=== PATIENT | female | born 1975 | race Caucasian/White ===

== ENCOUNTER 2019-10-19 12:41 | Day surgery (SDC) | payer OTHER ==
[~2019-10-19 12:41] MED LIST: MULTIVITAMINS1 EAC7; PRENA1 PLUS CO1 EACH PO
[2019-10-19] MEDS ORDERED: PROBIOTIC1 EAC1 PO (13:02)
--- NOTE | 2019-10-19 13:44 | NUR ---
DISCHARGE INSTRUCTIONS GIVEN AND PATIENT AND HER SPOUSE VERBALIZE UNDERSTANDING. PATIENT IS DISCHARGED HOME AMBULATORY ACCOMPANIED BY HER SPOUSE.
--- NOTE | 2019-10-21 08:21 | OR ---
[facility] [address], [place] [address] Signed DATE OF OPERATION: 10/19/2019 SURGEON: Carolyn Ford MD PREOPERATIVE DIAGNOSES: 1. Right inflammatory breast cancer. 2. Enlarged right axillary lymph node. POSTOPERATIVE DIAGNOSES: 1. Right inflammatory breast cancer. 2. Enlarged right axillary lymph node. PROCEDURE: Ultrasound-guided right axillary lymph node biopsy (core biopsy, Biopty gun device). ANESTHESIA: A 1% lidocaine. INDICATION: A 44-year-old white woman, has a right-sided inflammatory breast cancer with an ulcerated lesion inferiorly at the mammary crease and peau d'orange changes with a dense mass approximately 10 cm in size. Additionally, she has a palpable right axillary lymph node. Core biopsy performed by me on Friday (today is Friday), confirmed infiltrating ductal breast carcinoma and clinical findings consistent with inflammatory breast cancer. She is here to undergo core biopsy of the axillary lymph node anticipating a standard inflammatory breast cancer treatment protocol to include chemotherapy and ultimately mastectomy. The lymph node is clinically suspicious and a biopsy anticipating her therapy has been recommended by me. She is due to see Dr. Zavaleta on Friday (tomorrow) and a Port-A-Cath is planned for Friday. She has no primary care provider. She understands the risks of core biopsy of the right axillary lymph node and wished to proceed. FINDINGS: The lymph node was well visualized on ultrasound and palpable within the axillary tissue. Two good core biopsies were obtained of the lesion under direct visualization. There was no complication. DESCRIPTION OF PROCEDURE: The patient was placed in the semi-recumbent position in the Day Surgery stretcher area and the right axilla interrogated with a SonLyticste ultrasound probe device. It was Electronically Signed By: CAROLYN FORD MD 10/21/19 0821 PATIENT NAME: BLAKE RHOADES OPERATIVE REPORT DATE OF : 79 REPORT #: [id number] PHYSICIAN: CAROLYN FORD MD PCP: NO PRIMARY CARE PHYSICIAN REPORT IS CONFIDENTIAL AND NOT TO BE RELEASED WITHOUT AUTHORIZATION [facility] [address], [place] [address] Signed easily visualized and corresponding to the palpable abnormality consistent with lymph node. Axilla was prepared with a chlorhexidine solution with her arm elevated somewhat and draped sterilely. A 1% lidocaine was injected in the margin of the pectoralis muscle and the ultrasound probe placed in the sterile sleeve in the usual way. A small incision was made with an #11 blade to allow for accommodation of a 14-gauge Biopty gun needle device. This was directed into view with the ultrasound probe guidance and aligned with the lymph node. Core biopsy was obtained without problem. There was no untoward bleeding. Pressure was applied to the site by the autopsy assistant and the specimen offloaded. With the same technique, another core biopsy was obtained and photographs taken of the needle directly passing through the lymph node in question. Again, there was no sign of bleeding and interrogation of the remaining axilla showed no sign of complication including bleeding. A Band-Aid was applied. She tolerated procedure well. MD SABRINA Butler/KARIN /[id number] cc: Mike Zavaleta MD Copies: MIKE ZAVALETA MD ~ Electronically Signed By: CAROLYN FORD MD 10/21/19 0821 PATIENT NAME: BLAKE RHOADES OPERATIVE REPORT DATE OF : 79 REPORT #: [id number] PHYSICIAN: CAROLYN FORD MD PCP: NO PRIMARY CARE PHYSICIAN REPORT IS CONFIDENTIAL AND NOT TO BE RELEASED WITHOUT AUTHORIZATION
--- NOTE | 2019-10-21 17:40 | PATH ---
[facility] [address], [place] [address] Signed SPECIMEN(S): A RIGHT AXILLARY LYMPH NODE SPECIMEN SOURCE: A. RIGHT AXILLARY LYMPH NODE CLINICAL HISTORY: Inflammatory breast ca right side. Right axillary lymph node biopsy. FINAL PATHOLOGIC DIAGNOSIS: Lymph node, right axilla, needle core biopsy: - Metastatic ductal carcinoma. - See comment. COMMENT: The metastatic carcinoma is present within dense fibrous connective tissue; no definitive lymph node tissue is identified. Immunohistochemical stains (with appropriately staining controls) were performed. The tumor cells are positive for ER and mammaglobin, supporting breast origin. The carcinoma is morphologically similar to the previously biopsied right breast carcinoma ([id number], 10/15/2019). As part of [facility]' Quality Improvement Program, this case was reviewed by another member of our pathology staff. The results were spoken to Dr. Quezada's office on 10/20/2019. NAL:NRT:cml:C1NR MICROSCOPIC EXAMINATION: Histologic sections of all submitted blocks are examined by light microscopy. These findings, together with the gross examination, support the pathologic diagnosis. GROSS DESCRIPTION: The specimen, labeled "HK," and designated on the requisition "right axillary lymph node, breast cancer right side," is received in formalin and consists of two fatty fibrous tissue cores and fragments measuring up to 0.1 cm in diameter and ranging 1.3-1.5 cm in length. The cores and fragments are inked with eosin and entirely submitted in cassette (A1). Cold ischemic time: Cannot be determined because of lack of information Approximate time in formalin: Cannot be determined, no collection time is provided PATIENT NAME: BLAKE RHOADES PATHOLOGY DATE OF : 79 REPORT #: [id number] PHYSICIAN: JAGRUTI PATHOLOGY PCP: NO PRIMARY CARE PHYSICIAN REPORT IS CONFIDENTIAL AND NOT TO BE RELEASED WITHOUT AUTHORIZATION [facility] [address], [place] [address] Signed AT (under the direct supervision of a pathologist) The Gross Description was prepared using a voice recognition system. The report was reviewed for accuracy; however, sound-alike word errors, addition and/or deletions may occur. If there is any question about this report, please contact Client Services. ADDITIONAL NOTES: Immunohistochemical and/or in situ hybridization studies were performed on this case with the appropriate positive controls that react as expected. This test was developed and its performance characteristics determined by [facility]. It has not been cleared or approved by the U.S. Food and Drug Administration. The FDA has determined that such clearance or approval is not necessary. This test is used for clinical purposes. It should not be regarded as investigational or for research. [facility] is certified under the Clinical Laboratory Improvement Amendments of 1988 (CLIA) as qualified to perform high complexity clinical laboratory testing. PERFORMING LABORATORY: The technical component was performed by [facility], [address] [place] [address] (Legal Transcriptionist: Flora Prieto MD; CLIA# [id number]). [facility], [address] [address] (CLIA# [id number]). Diagnostician: Autumn Peacock MD Pathologist Electronically Signed 10/21/2019 Copies: ~ PATIENT NAME: BLAKE RHOADES PATHOLOGY DATE OF : 79 REPORT #: [id number] PHYSICIAN: JAGRUTI PATHOLOGY PCP: NO PRIMARY CARE PHYSICIAN REPORT IS CONFIDENTIAL AND NOT TO BE RELEASED WITHOUT AUTHORIZATION
[2019-10-26] MEDS ORDERED: IBUPROFEN600 MG PO (11:39)
[2019-10-26] MEDS ORDERED: OXYCODON-ACETA1 EAC2 PO (11:39)
[2019-10-26] MEDS ORDERED: TYLENOL EXTRA500 MG PO (11:39)
== END 2019-10-19 18:00 | disposition home or self-care (01) ==
LOC: OPS 12:41 → DS 12:44 → OPS 18:00
PROC: 07B50ZX Excision of Right Axillary Lymphatic, Open Approach, Diagnostic (ICD-10-PCS; principal; 2019-10-19)
DX: C77.3 Secondary and unspecified malignant neoplasm of axilla and upper limb lymph nodes (principal); C50.911 Malignant neoplasm of unspecified site of right female breast; I10 Essential (primary) hypertension
CPT/HCPCS: 19100

== ENCOUNTER 2019-11-10 17:56 | Inpatient (IN) | payer OTHER ==
[~2019-11-10] VITALS: Ht 152.4 cm; Wt 65.2 kg
--- OUTSIDE RECORDS SUMMARY | ~2019-11-10 | XMS | Encounter Summary ---
Demographics + + + | Address | [address] | | | [place] [address] | + + + | Home Phone | | + + + | Preferred Language | Unknown | + + + | Marital Status | | + + + | Buddhism Affiliation | Unknown | + + + | Race | Unknown | + + + | Ethnic Group | Unknown | + + + Author + + + | Author | [facility] | | | and [facility] | + + + | Organization | [facility] | | | and [facility] | + + + | Address | Unknown | + + + | Phone | Unavailable | + + + Support + + + + + | Name | Relationship | Address | Phone | + + + + + | Franklin Yusuf | ECON | [address] | | | | | [place], [place] | | | | | [address] | | + + + + + Care Team Providers + +------+ + | Care Phlebotomist Supervisor/Instructor Name | Role | Phone | + +------+ + | No, Unknownpcp | PCP | | + +------+ + Reason for Visit + + + | Reason | Comments | + + + | Follow-up | | + + + Evaluate & Treat (Routine) + +--------+ + + + + | Status | Reason | Specialty | Diagnoses / | Referred By | Referred To | | | | | Procedures | Contact | Contact | + +--------+ + + + + | Authorized | | Oncology | Diagnoses | | [facility] | | | | | Malignant | Gely, | Oncology | | | | | neoplasm of | Ron Karen, | Clinic [address] | | | | | unspecified | [address] | [place] | | | | | site of | KAREN [place]ANDON, | [place], | | | | | right female | [address] | [place] [address] | | | | | breast | [place], | Phone: | | | | | (HCC) | [place] [address] | [phone] | | | | | Breast | | Fax: | | | | | Cancer | | [phone] | | | | | Procedures | | | | | | | [facility] | | | | | | | FOLLOW UP | | | + +--------+ + + + + Encounter Details +--------+ + + + + | Date | Type | Department | Care Team | Description | +--------+ + + + + | 10/27/ | Hospital | [facility] | Zachary Santos | Malignant neoplasm | | 2020 | Encounter | [facility] | MD Dano [address] | of breast in female, | | | | ONCOLOGY CL[facility] [address] [place], [place] | estrogen receptor | | | | [address] [place] | [address] | positive, | | | | [place] [address] | | unspecified | | | | [phone] | | laterality, | | | | | | unspecified site of | | | | | | breast (HCC) | | | | | | (Primary Dx) | +--------+ + + + + Social History + +-------+ +--------+------+ | Tobacco Use | Types | Packs/Day | Years | Date | | | | | Used | | + +-------+ +--------+------+ | Never Assessed | | | | | + +-------+ +--------+------+ + + +---------+ + | Alcohol Use | Drinks/Week | oz/Week | Comments | + + +---------+ + | Yes | | | occasionally | + + +---------+ + + + + | Sex Assigned at | Date Recorded | | | | + + + | Not on file | | + + + documented as of this encounter Last Filed Vital Signs + + + + + | Vital Sign | Reading | Time Taken | Comments | + + + + + | Blood Pressure | 164/102 | 10/28/2019 10:26 AM | | | | | PDT | | + + + + + | Pulse | 78 | 10/28/2019 10:26 AM | | | | | PDT | | + + + + + | Temperature | 37.3 C (99.1 F) | 10/28/2019 10:26 AM | | | | | PDT | | + + + + + | Respiratory Rate | 16 | 10/28/2019 10:26 AM | | | | | PDT | | + + + + + | Oxygen Saturation | 97% | 10/28/2019 10:26 AM | | | | | PDT | | + + + + + | Inhaled Oxygen | - | - | | | Concentration | | | | + + + + + | Weight | 64.5 kg (142 lb 3.2 | 10/28/2019 10:26 AM | | | | oz) | PDT | | + + + + + | Height | - | - | | + + + + + | Body Mass Index | - | - | | + + + + + documented in this encounter Medications at Time of Discharge + + + +---------+ + + | Medication | Sig | Dispensed | Refills | Start | End Date | | | | | | Date | | + + + +---------+ + + | dexamethasone | | | 0 | 10/20/19 | | | (DECADRON) 4 mg | | | | 20 | | | tablet | | | | | | + + + +---------+ + + | ibuprofen | TAKE 1 TABLET BY | | 0 | 10/26/19 | | | (ADVIL,MOTRIN) 600 | MOUTH EVERY 6 HOURS | | | 20 | | | MG tablet | NEEDED FOR | | | | | | | MODERATE PAIN | | | | | + + + +---------+ + + | LORazepam (ATIVAN) | | | 0 | 10/20/19 | | | 1 mg tablet | | | | 20 | | + + + +---------+ + + | Multiple Vitamin | Take by mouth. | | 0 | | | | (MULTIVITAMIN PO) | | | | | | + + + +---------+ + + | ondansetron | TAKE 1 TABLET BY | | 0 | 10/21/19 | | | (ZOFRAN) 8 MG tablet | MOUTH TWICE DAILY | | | 20 | | | | FOR 2 DAYS AFTER | | | | | | | CHEMOTHERAPY | | | | | + + + +---------+ + + | | TAKE 1 TO 2 TABLETS | | 0 | 20 | | | oxyCODONE-acetaminop | BY MOUTH EVERY 6 | | | 20 | | | hen (PERCOCET) | HOURS NEEDED | | | | | | 7.5-325 mg per | | | | | | | tablet | | | | | | + + + +---------+ + + | Probiotic Product | Take by mouth. | | 0 | | | | (PROBIOTIC PO) | | | | | | + + + +---------+ + + documented as of this encounter Progress Notes Zachary Santos MD - 10/28/2019 10:40 AM PDTMedical Oncology Follow-Up Note REASON FOR VISIT Current Diagnosis and Disease State: Inflammatory breast cancer, newly diagnosed. Current Therapy: To start dose-dense AC Specific reason for appointment: C1, D1 being given in [place] secondary to baird proble ms in [place]. Systematic Review of Systems Constitutional: Denies fatigue. Denies high fevers, shaking chills, anorexia, nausea, vomit ing, weight loss, or night sweats. Appetite without changes. Ear, Nose, Mouth, Throat: Denies odynophagia, dysphagia, or tinnitus. Cardiovascular: Denies shortness of breath, dyspnea on exertion, chest pain, palpitations o r orthopnea. Respiratory: Denies cough, hemoptysis, or sputum production. Gastrointestinal: Denies abdominal pain, constipation, diarrhea, melena, or bright red bloo d per rectum. Genitourinary: Denies hematuria or dysuria. Musculoskeletal: Denies joint pain or tenderness. Neurologic: Denies headache, visual changes, or numbness/tingling of the extremities. Endocrine: Denies peripheral edema or heat/cold intolerance. Hematologic: Denies spontaneous bruising or bleeding. Integumentary: Denies rash, wounds or other skin concerns. Pain: Denies pain. CANCER HISTORY A 2 month history of Right breast pain led to medical attention and finding of inflammatory breast cancer. Biopsy showed G2 IDC with ER strong, IA 5% and Her2 positive. Ki-67 was 22% (thus, a Her2 positive luminal breast cancer). A program of AC, followed by Taxol with dual mAbs, followed by surgery has been outlined by Dr. Hong. IMPORTANT CO-MORBIDITY None NOTABLE CURRENT LAB AND IMAGING RESULTS Unremarkable IMPRESSION 1. Triple-positive breast cancer with low Ki-67, presenting with inflammatory phenotype 2. Minimal co-morbidity PLAN 1. C1, D1 AC as previously ordered. Will lengthen Christiano infusion a bit as this is known to reduce potential for cardiac toxicity. Measures to preserve cardiac function are needed sinc e she will be getting long-term anti-Her2 therapy and almost certainly chest wall radiation in the course of her treatment. 2. Denis count in 10 days, and presumably Dr. Q to decide on retreatment interval. Shruthi Lopez CMA - 10/28/2019 10:40 AM PDTREVIEW OF SYSTEMS Constitutional: Denies fatigue. Denies high fevers, shaking chills, anorexia, nausea, vomit ing, weight loss, or night sweats. Appetite without changes. Ear, Nose, Mouth, Throat: Denies odynophagia, dysphagia, or tinnitus. Cardiovascular: Denies shortness of breath, dyspnea on exertion, chest pain, palpitations o r orthopnea. Respiratory: Denies cough, hemoptysis, or sputum production. Gastrointestinal: Denies abdominal pain, constipation, diarrhea, melena, or bright red bloo d per rectum. Genitourinary: Denies hematuria or dysuria. Musculoskeletal: Denies joint pain or tenderness. Neurologic: Denies headache, visual changes, or numbness/tingling of the extremities. Endocrine: Denies peripheral edema or heat/cold intolerance. Hematologic: Denies spontaneous bruising or bleeding. Integumentary: Denies rash, wounds or other skin concerns. Pain: Denies pain. Note: Pt is here today for first and labs.Consent obtained to begin treatment. Pt is gladis gayle from Dr. Hong at [facility]. My chart: Declined documented in this encounter Plan of Treatment Not on filedocumented as of this encounter Procedures + +--------+ + + + | Procedure Name | Priori | Date/Time | Associated Diagnosis | Comments | | | ty | | | | + +--------+ + + + | PATHOLOGY - EXTERNAL | | 10/15/2019 | | Results for this | | SCAN | | 12:00 AM | | procedure are in the | | | | PDT | | results section. | + +--------+ + + + documented in this encounter Results PATHOLOGY - EXTERNAL SCAN (10/15/2019 12:00 AM PDT) + + + | Narrative | Performed At | + + + | Ordered by an | | | unspecified provider. | | + + + documented in this encounter Visit Diagnoses + + | Diagnosis | + + | Malignant neoplasm of breast in female, estrogen receptor positive, unspecified | | laterality, unspecified site of breast (HCC) - Primary | + + documented in this encounter"
--- OUTSIDE RECORDS SUMMARY | ~2019-11-10 | XMS | Encounter Summary ---
Demographics + + + | Address | [address] | | | [place] [address] | + + + | Home Phone | | + + + | Preferred Language | Unknown | + + + | Marital Status | | + + + | Uatsdin Affiliation | Unknown | + + + | Race | Unknown | + + + | Ethnic Group | Unknown | + + + Author + + + | Author | [facility] | | | and [facility] | + + + | Organization | [facility] | | | and [facility] | + + + | Address | Unknown | + + + | Phone | Unavailable | + + + Support + + + + + | Name | Relationship | Address | Phone | + + + + + | Franklin Yusuf | ECON | [address] | | | | | [place], [place] | | | | | [address] | | + + + + + Care Team Providers + +------+ + | Care Piano Instructor Name | Role | Phone | + +------+ + | No, Unknownpcp | PCP | | + +------+ + Reason for Visit Service/Procedure (Routine) + +--------+ + + + + | Status | Reason | Specialty | Diagnoses / | Referred By | Referred To | | | | | Procedures | Contact | Contact | + +--------+ + + + + | Authorized | | Infusion | Diagnoses | Danielle | [facility] | | | | Therapy | Malignant | Zachary E, | Infusion [address] | | | | | neoplasm of | MD [address] | | | | | unspecified | [address] | [place], | | | | | site of | [place], | [place] [address] | | | | | unspecified | [place] [address] | Phone: | | | | | female | Phone: | [phone] | | | | | breast (HCC) | [phone] | Fax: | | | | | Procedures | Fax: | [phone] | | | | | CT NORMAL | [phone] | | | | | | SALINE | | | | | | | SOLUTION | | | | | | | INFUS, 500 | | | | | | | ML CT | | | | | | | NORMAL | | | | | | | SALINE | | | | | | | SOLUTION | | | | | | | INFUS, 250 | | | | | | | ML CT | | | | | | | STERILE | | | | | | | WATER/SALINE | | | | | | | , [address] | | | | | | | CHEMOTHER, | | | | | | | IV PUSH,EA | | | | | | | ADD DRUG CT | | | | | | | CHEMOTHER, | | | | | | | IV INFUSION, | | | | | | | [address] | | | | | | | CHEMOTHER, | | | | | | | IV INFUSION, | | | | | | | EA HR CT | | | | | | | CHEMOTHER,NO | | | | | | | N-HORMONE | | | | | | | ANTI-NEOPL, | | | | | | | SUB-Q/IM CT | | | | | | | CHEMOTHER | | | | | | | HORMON | | | | | | | ANTINEOPL | | | | | | | SUB-Q/IM CT | | | | | | | | | | | | | | PALONOSETRON | | | | | | | HCL, 25 MCG | | | | | | | CT ORAL | | | | | | | DEXAMETHASON | | | | | | | E, .25 MG | | | | | | | CT INJ., | | | | | | | APREPITANT, | | | | | | | [address] | | | | | | | LORAZEPAM | | | | | | | INJECTION, 2 | | | | | | | MG CT | | | | | | | DOXORUBICIN | | | | | | | HCL | | | | | | | INJECTION, | | | | | | | [address] | | | | | | | CYCLOPHOSPHA | | | | | | | MIDE 100 MG | | | | | | | INJ | | | + +--------+ + + + + Encounter Details +--------+ + + + + | Date | Type | Department | Care Team | Description | +--------+ + + + + | 10/27/ | Hospital | [facility] | Zachary Santos | Malignant neoplasm | | 2019 | Encounter | MED [facility] | MD Dano [address] | of breast in female, | | | | INFUSION [address] [place] | estrogen receptor | | | | [place], | [address] | positive, | | | | [place] [address] | | unspecified | | | | [phone] | | laterality, | | | | [...] + + + | Blood Pressure | - | - | | + + + + + | Pulse | - | - | | + + + + + | Temperature | - | - | | + + + + + | Respiratory Rate | - | - | | + + + + + | Oxygen Saturation | - | - | | + + + + + | Inhaled Oxygen | - | - | | | Concentration | | | | + + + + + | Weight | - | - | | + + + + + | Height | 156.2 cm (5' 1.5") | 10/28/2019 11:00 AM | | | | | PDT [...] | dexamethasone | | | 0 | / | | | (DECADRON) 4 mg | [...] TO 2 TABLETS | | 0 | 10/17/ | | | oxyCODONE-acetaminop | BY MOUTH [...] documented as of this encounter Progress Notes Priscilla Ferris RN - 10/28/2019 2:51 PM PDTTreatment complete. Discharged to home in s atisfactory condition with family. Future appointments provided. documented in this encounter Miscellaneous Notes Treatment Plan - Magdalena Swanson RN - 10/28/2019 11:07 AM PDTViewed chart for weight, vital signs and lab results. Also viewed chart for completion of medication and allergy rev iew prior to treatment. Magdalena Swanson RNDATE/TIME: 10/28/2019 11:07 AM PDT documented in thi s encounter Plan of Treatment Not on filedocumented as of this encounter Procedures + +--------+ + + + | Procedure Name | Priori | Date/Time | Associated Diagnosis | Comments | | | ty | | | | + +--------+ + + + | CBC WITH | STAT | 10/28/2019 | Malignant neoplasm | Results for this | | DIFFERENTIAL | | 10:08 AM | of breast in | procedure are in the | | | | PDT | female, estrogen | results section. | | | | | receptor positive, | | | | | | unspecified | | | | | | laterality, | | | | | | unspecified site of | | | | | | breast (HCC) | | + +--------+ + + + | COMPREHENSIVE | STAT | 10/28/2019 | Malignant neoplasm | Results for this | | METABOLIC PANEL | | 10:08 AM | of breast in | procedure are in the | | | | PDT | female, estrogen | results section. | | | | | receptor positive, | | | | | | unspecified | | | | | | laterality, | | | | | | unspecified site of | | | | | | breast (HCC) | | + +--------+ + + + documented in this encounter Results CBC with Differential (10/28/2019 10:08 AM PDT) + + + + + + | Component | Value | Ref Range | Performed | Pathologist | | | | | At | Signature | + + + + + + | White Blood | 5.7 | 4.0 - 11.0 K/uL | [facility] | | | Cells | | | [facility] | | | | | | [facility] | | | | | | C[facility] - | | | | | | LABORATORY | | + + + + + + | Red Blood | 4.54 | 3.70 - 5.20 | [facility] | | | Cells | | M/uL | [facility] | | | | | | [facility] | | | | | | CENTER - | | | | | | LABORATORY | | + + + + + + | Hemoglobin | 13.5 | 11.5 - 16.0 | [facility] | | | | | g/dL | [facility] | | | | | | [facility] | | | | | | CENTER - | | | | | | LABORATORY | | + + + + + + | Hematocrit | 38.9 | 34.0 - 47.0 % | [facility] | | | | | | [facility] | | | | | [facility] | | | | | | [facility] - | | | | | | LABORATORY | | + + + + + + | MCV | 85.7 | 83.0 - 101.0 fL | [facility] | | | | | | [facility] | | | | | | [facility] | | | | | | [facility] - | | | | | | LABORATORY | | + + + + + + | MCH | 29.7 | 28.0 - 35.0 pg | [facility] | | | | | | [facility] | | | | | | [facility]ICAL | | | | | | CENTER - | | | | | | LABORATORY | | + + + + + + | MCHC | 34.7 | 32.0 - 36.0 | [facility] | | | | | g/dL | [facility] | | | | | | MEDICAL | | | | | | CENTER - | | | | | | LABORATORY | | + + + + + + | RDW-CV | 12.7 | <15.0 % | [facility] | | | | | | [facility] | | | | | | [facility] | | | | | | C[facility] - | | | | | | LABORATORY | | + + + + + + | RDW-SD | 39.7 | 35.1 - 46.3 fL | [facility] | | | | | | [facility] | | | | | | [facility] | | | | | | C[facility] - | | | | | | LABORATORY | | + + + + + + | Platelet | 223 | 140 - 440 K/uL | [facility] | | | Count | | | [facility] | | | | | | MEDICAL | | | | | | CENTER - | | | | | | LABORATORY | | + + + + + + | MPV | 9.2 | 6.5 - 12.4 fL | [facility] | | | | | | [facility] | | | | | | [facility]ICAL | | | | | | CENTER - | | | | | | LABORATORY | | + + + + + + | % | 69.9 | 45.0 - 82.0 % | [facility] | | | Neutrophils | | | [facility] | | | | | | MEDICAL | | | | | | CENTER - | | | | | | LABORATORY | | + + + + + + | % | 19.5 (L) | 20.0 - 45.0 % | [facility] | | | Lymphocytes | | | [facility] | | | | | | MEDICAL | | | | | | CENTER - | | | | | | LABORATORY | | + + + + + + | % Monocytes | 8.9 | 4.0 - 12.0 % | [facility] | | | | | | [facility] | | | | | | [facility]ICAL | | | | | | CENTER - | | | | | | LABORATORY | | + + + + + + | % | 1.1 | 0.0 - 5.0 % | [facility] | | | Eosinophils | | | [facility] | | | | | | MEDICAL | | | | | | CENTER - | | | | | | LABORATORY | | + + + + + + | % Basophils | 0.4 | 0.0 - 1.0 % | [facility] | | | | | | [facility] | | | | | | [facility]ICAL | | | | | | CENTER - | | | | | | LABORATORY | | + + + + + + | % Immature | 0.2Comment: For | 0.0 - 0.4 % | [facility] | | | Granulocyte | patients, use the | | [facility] | | | s | special reference ranges | | MEDICAL | | | | listed below. | | CENTER - | | | | | | LABORATORY | | + + + + + + | Absolute | 3.99 | 1.80 - 8.50 | [facility] | | | Neutrophils | | K/uL | [facility] | | | | | | MEDICAL | | | | | | CENTER - | | | | | | LABORATORY | | + + + + + + | Absolute | 1.11 | 0.60 - 3.20 | [facility] | | | Lymphocytes | | K/uL | [facility] | | | | | | MEDICAL | | | | | | CENTER - | | | | | | LABORATORY | | + + + + + + | Absolute | 0.51 | 0.00 - 1.00 | [facility] | | | Monocytes | | K/uL | [facility] | | | | | | MEDICAL | | | | | | CENTER - | | | | | | LABORATORY | | + + + + + + | Absolute | 0.06 | 0.00 - 0.40 | [facility] | | | Eosinophils | | K/uL | [facility] | | | | | | MEDICAL | | | | | | CENTER - | | | | | | LABORATORY | | + + + + + + | Absolute | 0.02 | 0.00 - 0.10 | [facility] | | | Basophils | | K/uL | [facility] | | | | | | MEDICAL | | | | | | CENTER - | | | | | | LABORATORY | | + + + + + + | Absolute | 0.01Comment: For | 0.00 - 0.03 | [facility] | | | Immature | patients, use | K/uL | [facility] | | | Granulocyte | the special reference | | MEDICAL | | | s | ranges listed below. | | CENTER - | | | | | | LABORATORY | | + + + + + + | % nRBC | 0 | 0 - 2 per 100 | [facility] | | | | | WBCs | [facility] | | | | | | MEDICAL | | | | | | CENTER - | | | | | | LABORATORY | | + + + + + + | Absolute | 0.00 | 0.00 - 0.01 | [facility] | | | nRBC | | K/uL | [facility] | | | | | | MEDICAL | | | | | | CENTER - | | | | | | LABORATORY | | + + + + + + + + | Specimen | + + | Blood | + + + + + | Narrative | Performed At | + + + | IMMATURE GRANULOCYTES - For patients, use the following | [facility] | | reference ranges: Trim. Absolute (K/uL) Percentage (%) | [facility] | | 1st 0.003-0.091 K/uL 0.0-0.9% 2nd 0.007-0.247 K/uL | [facility] | | 0.1-2.0% 3rd 0.018-0.456 K/uL 0.1-2.0% | - LABORATORY | + + + + + + + + | Performing | Address | City/State/Zipcode | Phone Number | | Organization | | | | + + + + + | [facility] | [address] | [place], [place] | [phone] | | [facility] | | [address] | | | - LABORATORY | | | | + + + + + Comprehensive Metabolic Panel (10/28/2019 10:08 AM PDT) + + + + + + | Component | Value | Ref Range | Performed | Pathologist | | | | | At | Signature | + + + + + + | Na | 143 | 136 - 145 | [facility] | | | | | mmol/L | [facility] | | | | | | MEDICAL | | | | | | CENTER - | | | | | | LABORATORY | | + + + + + + | K | 3.7 | 3.4 - 5.1 | [facility] | | | | | mmol/L | [facility] | | | | | | MEDICAL | | | | | | CENTER - | | | | | | LABORATORY | | + + + + + + | Cl | 109 (H) | 98 - 107 mmol/L | [facility] | | | | | | [facility] | | | | | | [facility] | | | | | | C[facility] - | | | | | | LABORATORY | | + + + + + + | CO2 | 25 | 20 - 31 mmol/L | [facility] | | | | | | [facility] | | | | | | [facility] | | | | | | CENTER - | | | | | | LABORATORY | | + + + + + + | Anion Gap | 9 | 3 - 16 mmol/L | [facility] | | | | | | [facility] | | | | | | [facility] | | | | | | CENTER - | | | | | | LABORATORY | | + + + + + + | Glucose | 86 | 60 - 106 mg/dL | [facility] | | | | | | [facility] | | | | | | MEDICAL | | | | | | CENTER - | | | | | | LABORATORY | | + + + + + + | BUN | 11 | 9 - 23 mg/dL | [facility] | | | | | | [facility] | | | | | | MEDICAL | | | | | | CENTER - | | | | | | LABORATORY | | + + + + + + | Creatinine | 0.54 (L) | 0.55 - 1.02 | [facility] | | | | | mg/dL | [facility] | | | | | | MEDICAL | | | | | | CENTER - | | | | | | LABORATORY | | + + + + + + | eGFR if not | >60Comment: GLOMERULAR | >=60 | [facility] | | | | FILTRATION | mL/min/1.73m2 | [facility] | | | PANAMANIAN | RATE,ESTIMATED | | MEDICAL | | | | mL/min/1.70p1Ftak than | | CENTER - | | | | 60 Chronic kidney | | LABORATORY | | | | disease,if found over a | | | | | | 3-month period.Less than | | | | | | 15 Kidney failureFor | | | | | | | | | | | | Americans,multiply the | | | | | | calculated GFR by 1.21. | | | | | | | | | | + + + + + + | Calcium | 8.5 (L) | 8.7 - 10.4 | [facility] | | | | | mg/dL | [facility] | | | | | | MEDICAL | | | | | | CENTER - | | | | | | LABORATORY | | + + + + + + | Albumin | 4.1 | 3.2 - 4.8 g/dL | [facility] | | | | | | [facility] | | | | | | MEDICAL | | | | | | CENTER - | | | | | | LABORATORY | | + + + + + + | Bilirubin | 0.3 | 0.3 - 1.2 mg/dL | [facility] | | | Total | | | [facility] | | | | | | MEDICAL | | | | | | CENTER - | | | | | | LABORATORY | | + + + + + + | Total | 6.4 | 5.7 - 8.2 g/dL | [facility] | | | Protein | | | [facility] | | | | | | MEDICAL | | | | | | CENTER - | | | | | | LABORATORY | | + + + + + + | AST | 28 | 0 - 34 U/L | [facility] | | | | | | [facility] | | | | | | MEDICAL | | | | | | CENTER - | | | | | | LABORATORY | | + + + + + + | ALT | 21 | 10 - 49 U/L | [facility] | | | | | | [facility] | | | | | | MEDICAL | | | | | | CENTER - | | | | | | LABORATORY | | + + + + + + | Alkaline | 80 | 46 - 116 U/L | [facility] | | | Phosphatase | | | [facility] | | | | | | MEDICAL | | | | | | CENTER - | | | | | | LABORATORY | | + + + + + + | Globulin | 2.3 | 2.1 - 3.8 g/dL | [facility] | | | | | | [facility] | | | | | | MEDICAL | | | | | | CENTER - | | | | | | LABORATORY | | + + + + + + | Albumin/Cecilia | 1.8 | 0.8 - 1.9 | [facility] | | | bulin Ratio | | | [facility] | | | | | | MEDICAL | | | | | | CENTER - | | | | | | LABORATORY | | + + + + + + | BUN/Creatin | 20.4 | | [facility] | | | ine Ratio | | | [facility] | | | | | | MEDICAL | | | | | | CENTER - | | | | | | LABORATORY | | + + + + + + + + | Specimen | + + | Blood | + + + + + + + | Performing | Address | City/State/Zipcode | Phone Number | | Organization | | | | + + + + + | [facility] | [address] | [place] | [phone] | | [facility] | | [address] | | | - LABORATORY | | | | + + + + + documented in this encounter Visit Diagnoses + + | Diagnosis | + + | Malignant neoplasm of breast in female, estrogen receptor positive, unspecified | | laterality, unspecified site of breast (HCC) - Primary | + + documented in this encounter Administered Medications + +--------+ +--------+------+------+ | Medication Order | MAR | Action | Dose | Rate | Site | | | Action | Date | | | | + +--------+ +--------+------+------+ | aprepitant (CINVANTI) injection | Given | 10/28/19 | 130 mg | | | | 130 mg 130 mg, IV Push, ONCE, | | 20 11:16 | | | | | Toña 10/28/19 at 1115, For 1 dose, | | AM PDT | | | | | Administer 30 minutes prior to | | | | | | | chemotherapy. Administer slowly | | | | | | | over 2 minutes, | | | | | | + +--------+ +--------+------+------+ +---+---+ | | | +---+---+ + +---------+ + +-------+---+ | cyclophosphamide (CYTOXAN) | New Bag | 10/28/19 | 1,000 mg | 500 | | | 1,000 mg in sodium chloride 0.9% | | 20 2:09 | | mL/hr | | | 200 mL infusion 1,000 mg | | PM PDT | | | | | (rounded from 1,002 mg = 600 | | | | | | | mg/m2 | | | | | | | 1.67 m2 Order-specific BSA), | | | | | | | Intravenous, Administer over 30 | | | | | | | Minutes, ONCE, [facility] 10/28/19 at | | | | | | | 1409, For 1 dose, Chemotherapy: | | | | | | | Use appropriate handling | | | | | | | precautions. If patient | | | | | | | experiences facial discomfort, | | | | | | | stop infusion and wait until | | | | | | | symptoms subside. Extend infusion | | | | | | | time(s) to greater than or equal | | | | | | | to 1 hour., | | | | | | + +---------+ + +-------+---+ +---+---+ | | | +---+---+ + +-------+ +-------+---+---+ | dexamethasone (DECADRON) tablet | Given | 10/28/19 | 12 mg | | | | 12 mg 12 mg, Oral, ONCE, Toña | | 20 11:13 | | | | | 10/28/19 at 1115, For 1 dose, | | AM PDT | | | | | Administer 30 minutes prior to | | | | | | | chemotherapy., | | | | | | + +-------+ +-------+---+---+ +---+---+ | | | +---+---+ + +---------+ +--------+-------+---+ | DOXOrubicin (ADRIAMYCIN) 100 mg | New Bag | 10/28/19 | 100 mg | 125 | | | in sodium chloride 0.9% 200 mL | | 20 11:56 | | mL/hr | | | infusion 100 mg (rounded from | | AM PDT | | | | | 100.2 mg = 60 mg/m2 | | | | | | | 1.67 m2 Order-specific BSA), | | | | | | | Intravenous, Administer over 120 | | | | | | | Minutes, ONCE, Toña 10/28/19 at | | | | | | | 1130, For 1 dose, Chemotherapy: | | | | | | | Use appropriate handling | | | | | | | precautions. Vesicant. Protect | | | | | | | from light., | | | | | | + +---------+ +--------+-------+---+ +---+---+ | | | +---+---+ + +-------+ +-------+---+---+ | heparin 100 units/mL flush | Given | 10/28/19 | 500 | | | | injection 500 Units 500 Units (5 | | 20 2:50 | Units | | | | mL), Intracatheter, PRN, Line | | PM PDT | | | | | Care, Starting Toña 10/28/19 at | | | | | | | 1106 | | | | | | + +-------+ +-------+---+---+ +---+---+ | | | +---+---+ + +-------+ +---------+---+---+ | palonosetron (ALOXI) injection | Given | 10/28/19 | 0.25 mg | | | | 0.25 mg 0.25 mg, Intravenous, | | 20 11:15 | | | | | ONCE, [facility] 10/28/19 at 1115, For 1 | | AM PDT | | | | | dose, Give IV push over 30 | | | | | | | seconds. Flush with saline before | | | | | | | and after giving. Administer 30 | | | | | | | minutes prior to chemotherapy., | | | | | | + +-------+ +---------+---+---+ +---+---+ | | | +---+---+ documented in this encounter
--- OUTSIDE RECORDS SUMMARY | ~2019-11-10 | XMS | Encounter Summary ---
Demographics + + + | Address | [address] | | | [place] [address] | + + + | Home Phone | | + + + | Preferred Language | Unknown | + + + | Marital Status | | + + + | Yarsanism Affiliation | Unknown | + + + | Race | Unknown | + + + | Ethnic Group | Unknown | + + + Author + + + | Author | [facility] | | | and [facility] | + + + | Organization | [facility] | | | and [facility] [...] [place], [place] | | | | | [address] | | + + + + + Care Team Providers + +------+ + | Care Credit Analyst Name | Role | Phone | + [...] | unspecified | [address] | [place] | | | | | site of | [place], | [place], | | | | | right female | [address] | [place] [address] | | | | | breast | [place], | Phone: | | | | | (HCC) | [place] [address] | [phone] | | | | | Breast | | Fax: | | | | | Cancer | | [phone] | | | | | Procedures | | | | | | | [facility] | | | | | | | FOLLOW UP | | | + +--------+ + + + + Encounter Details +--------+ + + + + | Date | Type | Department | Care Team | Description | +--------+ + + + + | 10/27/ | Hospital | [facility] | Zachary Santos | Malignant neoplasm | | 2020 | Encounter | [facility] | MD Dano [address] | of breast in female, | | | | [facility] [address] [place], [place] | estrogen receptor | | | | [address] [place] [address] | [address] | positive, | | | | [place] [address] | | unspecified | | | | [phone] | | laterality, | | | | [...] for appointment: C1, D1 being given in [place] secondary to baird proble ms in [place]. Systematic Review of Systems Constitutional: Denies fatigue. 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 Ki-67 was 22% [...] is gladis gayle from Dr. Hong at [facility]. My chart: Declined documented in this [...]
--- OUTSIDE RECORDS SUMMARY | ~2019-11-10 | XMS | Clinical Summary ---
Demographics + + + | Address | [address] | | | [place] [address] | + + + | Home Phone | | + + + | Preferred Language | Unknown | + + + | Marital Status | | + + + | Roman Catholic Affiliation | Unknown | + + + | Race | Unknown | + + + | Ethnic Group | Unknown | + + + Author + + + | Author | [facility] | | | and [facility] | + + + | Organization | [facility] | | | and [facility] [...] [place], [place] | | | | | [address] | | + + + + + Care Team Providers + +------+ + | Care Hydrologist Name | Role | Phone | + +------+ + | No, Unknownpcp | PCP | | + +------+ + Allergies No Known Allergies Medications + + + +---------+------+------+-------+ | Medication | Sig | Dispensed | Refills | Star | End | Statu | | | | | | t | Date | s | | | | | | Date | | | + + + +---------+------+------+-------+ | | TAKE 1 TO 2 TABLETS | | 0 | 06/1 | | Activ | | oxyCODONE-acetaminop | BY MOUTH EVERY 6 | | | 5/20 | | e | | hen (PERCOCET) | HOURS NEEDED | | | 20 | | | | 7.5-325 mg per | | | | | | | | tablet | | | | | | | + + + +---------+------+------+-------+ | LORazepam (ATIVAN) | | | 0 | 06/1 | | Activ | | 1 mg tablet | | | | 7/20 | | e | | | | | | 20 | | | + + + +---------+------+------+-------+ | dexamethasone | | | 0 | 06/1 | | Activ | | (DECADRON) 4 mg | | | | 7/20 | | e | | tablet | | | | 20 | | | + + + +---------+------+------+-------+ | Multiple Vitamin | Take by mouth. | | 0 | | | Activ | | (MULTIVITAMIN PO) | | | | | | e | + + + +---------+------+------+-------+ | ibuprofen | TAKE 1 TABLET BY | | 0 | 06/2 | | Activ | | (ADVIL,MOTRIN) 600 | MOUTH EVERY 6 HOURS | | | 3/20 | | e | | MG tablet | NEEDED FOR | | | 20 | | | | | MODERATE PAIN | | | | | | + + + +---------+------+------+-------+ | ondansetron | TAKE 1 TABLET BY | | 0 | 06/1 | | Activ | | (ZOFRAN) 8 MG tablet | MOUTH TWICE DAILY | | | 8/20 | | e | | | FOR 2 DAYS AFTER | | | 20 | | | | | CHEMOTHERAPY | | | | | | + + + +---------+------+------+-------+ | Probiotic Product | Take by mouth. | | 0 | | | Activ | | (PROBIOTIC PO) | | | | | | e | + + + +---------+------+------+-------+ Active Problems + + + | Problem | Noted Date | + + + | Breast cancer | 10/21/2019 | + + + Encounters +--------+ + + + + | Date | Type | Specialty | Care Team | Description | +--------+ + + + + | 10/27/ | Hospital | Oncology | Zachary Santos | Malignant neoplasm | | 2019 | Encounter | | MD Tari Matson, | of breast in female, | | | | | Scott Kulkarni PharmD | estrogen receptor | | | | | | positive, | | | | | | unspecified | | | | | | laterality, | | | | | | unspecified site of | | | | | | breast (HCC) | | | | | | (Primary Dx) | +--------+ + + + + | 10/27/ | Hospital | Oncology | Zachary Santos | Malignant neoplasm | | 2020 | Encounter | | E, MD | of breast in female, | | | | | | estrogen receptor | | | | | | positive, | | | | | | unspecified | | | | | | laterality, | | | | | | unspecified site of | | | | | | breast (HCC) | | | | | | (Primary Dx) | +--------+ + + + + | 10/27/ | Hospital | Infusion Therapy | Zachary Santos | Malignant neoplasm | | 2019 | Encounter | | E, MD | of breast in female, | | | | | | estrogen receptor | | | | | | positive, | | | | | | unspecified | | | | | | laterality, | | | | | | unspecified site of | | | | | | breast (HCC) | | | | | | (Primary Dx) | +--------+ + + + + | 10/26/ | Abstract | Oncology | Shruthi Bro, | | | 2019 | | | INJECTION MOLDING MACHINE TENDER | | +--------+ + + + + | 10/20/ | Orders Only | Oncology | DukegoldieScott clayton | Malignant neoplasm | | 2020 | | | J, PharmD | of breast in female, | | | | | | estrogen receptor | | | | | | positive, | | | | | | unspecified | | | | | | laterality, | | | | | | unspecified site of | | | | | | breast (HCC) | +--------+ + + + + from Last 3 Months Social History + +-------+ +--------+------+ | Tobacco [...] on file | | + + + Last Filed Vital Signs + + + [...] | | + + + + + Plan of Treatment + + +-------+ + | Health Maintenance | Due Date | Last | Comments | | | | Done | | + + +-------+ + | Vaccine: | | | | | Pneumococcal 19-64 | 4 | | | | (1 of 3 - PCV13) | | | | + + +-------+ + | Vaccine: | | | | | Dtap/Tdap/Td (1 - | 7 | | | | Tdap) | | | | + + +-------+ + | Cervical Cancer | | | | | Screening (Pap) | 8 | | | + + +-------+ + | Vaccine: Influenza | | | | | (#1) | 0 | | | + + +-------+ + Procedures + +--------+ + + + | [...] section. | + +--------+ + + + from Last 3 Months Results CBC with Differential (10/28/2019 10:08 AM PDT) + + + + + + | Component | Value | Ref Range | Performed | Pathologist | | | | | At | Signature | + + + + + + | White Blood | 5.7 | 4.0 - 11.0 K/uL | [facility] | | | Cells | | | [facility] | | [...] | | | | | | [facility] | | | | | | MEDICAL [...] | Monocytes | | K/uL | [facility] | [...] | | Basophils | | K/uL | [facility] | | | | [...] | | | | | WBCs | [facility] | | | | | | MEDICAL | | | | | | CENTER - | | | | | | LABORATORY | | + + + + + + | Absolute | 0.00 | 0.00 - 0.01 | [facility] | | | nRBC | | K/uL | [facility] | [...] 0.003-0.091 K/uL 0.0-0.9% 2nd 0.007-0.247 K/uL | [facility] | | 0.1-2.0% 3rd 0.018-0.456 K/uL 0.1-2.0% | - LABORATORY | + + + + + + + + | Performing | Address | City/State/Zipcode | Phone Number | | Organization | | | | + + + + + | [facility] | [address] | [place] | [phone] | | [facility] | | [address] | | | - LABORATORY | | [...] | | | | | mmol/L | [facility] | | | | | | MEDICAL | | | | | | CENTER - | | | | | | LABORATORY | | + + + + + + | K | 3.7 | 3.4 - 5.1 | [facility] | | | | | mmol/L | [facility] | | | | [...] 11 | 9 - 23 mg/dL | [facility] | | | | | | [facility] | | | | | | MEDICAL | | | | | | CENTER - | | | | | | LABORATORY | | + + + + + + | Creatinine | 0.54 (L) | 0.55 - 1.02 | [facility] | | | | | mg/dL | [facility] | | | | | | MEDICAL | | | | | | CENTER - | | | | | | LABORATORY | | + + + + + + | eGFR if not | >60Comment: GLOMERULAR | >=60 | [facility] | | | | FILTRATION | mL/min/1.73m2 | [facility] | | | THAI | RATE,ESTIMATED | | MEDICAL | | | | mL/min/1.31x1Stsd than | | CENTER - | | [...] 8.5 (L) | 8.7 - 10.4 | [facility] | | | | | mg/dL | [facility] | | | | | | MEDICAL | | | | | | CENTER - | | | | | | LABORATORY | | + + + + + + | Albumin | 4.1 | 3.2 - 4.8 g/dL | [facility] | | | | | | [facility] | | | | | | MEDICAL | | | | | | CENTER - | | | | | | LABORATORY | | + + + + + + | Bilirubin | 0.3 | 0.3 - 1.2 mg/dL | [facility] | | | Total | | | [...] + + + + + | [facility] | [address] | [place], [place] | [phone] | | [facility] | | [address] | | | - LABORATORY | | | | + + + + + PATHOLOGY - EXTERNAL SCAN (10/15/2019 12:00 AM PDT) + + + | Narrative | Performed At | + + + | Ordered by an | | | unspecified provider. | | + + + from Last 3 Months Insurance + +--------+ +--------+ +---------+------+ | Payer | Benefi | Subscriber | Effect | Phone | Address | Type | | | t Plan | ID | jeanette | | | | | | / | | Dates | | | | | | Group | | | | | | + +--------+ +--------+ +---------+------+ | [facility] | PHP | [id number] | 05/05/19 | [phone] | | PPO | | PLAN | PEBB | | 18-Pre | 5 | | | | | STATEW | | sent | | | | | | GREG | | | | | | + +--------+ +--------+ +---------+------+ + +--------+ +--------+ + + | Guarantor Name | Accoun | Relation to | Date | Phone | Billing Address | | | t Type | Patient | of | | | | | | | | | | + +--------+ +--------+ + + | Alicia Yusuf | Person | Self [birth year] | [address] | | al/Fam | | 1976 | [phone] | [place] [address] | | | car | | | 0 (Home) | | + +--------+ +--------+ + + Advance Directives + + + + + | Type | Date Recorded | Patient | Explanation | | | | Gui Developer | | + + + + + | Power of | | | | | Firewall Administrator | | | | + + + + + | Advance | | | | | Directive | | | | + + + + +
--- OUTSIDE RECORDS SUMMARY | ~2019-11-10 | XMS | Encounter Summary ---
Demographics + + + | Address | [address] | | | [place] [address] | + + + | Home Phone | | + + + | Preferred Language | Unknown | + + + | Marital Status | | + + + | Lutheran Affiliation | Unknown | + + + | Race | Unknown | + + + | Ethnic Group | Unknown | + + + Author + + + | Author | [facility] | | | and [facility] | + + + | Organization | [facility] | | | and [facility] | + + + | Address | Unknown | + + + | Phone | Unavailable | + + + Support + + + + + | Name | Relationship | Address | Phone | + + + + + | Franklin Yusuf | ECON | [address] | | | | | [place], [place] | | | | | [address] | | + + + + + Care Team Providers + +------+ + | Care Welder Explosion Name | Role | Phone | + +------+ + | No, Unknownpcp | PCP | | + +------+ + Encounter Details +--------+ + + + + | Date | Type | Department | Care Team | Description | +--------+ + + + + | 10/26/ | Abstract | [facility] | Shruthi Bro, | | | 2019 | | MED CTR MEDICAL | REGISTERED NURSES | | | | | [facility]Y CLINIC [address] | | | | | | [address] | | | | | | [place] [address] | | | | | | [phone] | | | +--------+ + + + + Social [...] + + documented as of this encounter Plan of Treatment Not on filedocumented as of this encounter Visit Diagnoses Not on filedocumented in this encounter"
--- OUTSIDE RECORDS SUMMARY | ~2019-11-10 | XMS | Encounter Summary ---
Demographics + + + | Address | [address] | | | [place] [address] | + + + | Home Phone | | + + + | Preferred Language | Unknown | + + + | Marital Status | | + + + | Presybeterian Affiliation | Unknown | + + + | Race | Unknown | + + + | Ethnic Group | Unknown | + + + Author + + + | Author | [facility] | | | and [facility] | + + + | Organization | [facility] | | | and [facility] | [...] [place], [place] | | | | | [address] | | + + + + + Care Team Providers + +------+ + | Care Shop Estimator Name | Role | Phone | + [...] of | MD [address] | | | | | unspecified | [address] | [place], | | | | | site of | [place], | [place] [address] | | | | | unspecified | [place] [address] | Phone: | | | | | female | Phone: | [phone] | | | | | breast (HCC) | [phone] | Fax: | | | | | Procedures | Fax: | [phone] | | | | | FL NORMAL | [phone] | | | | | | SALINE | | | | | | | SOLUTION | | | | | | | INFUS, 500 | | | | | | | ML FL | | | | | | | NORMAL | | | | | | | SALINE | | | | | | | SOLUTION | | | | | | | INFUS, 250 | | | | | | | ML FL | | | | | | | STERILE | | | | | | | WATER/SALINE | | | | | | | , 10 ML FL | | | | | | | CHEMOTHER, | | | | | | | IV PUSH,EA | | | | | | | ADD DRUG FL | | | | | | | CHEMOTHER, | | | | | | | IV INFUSION, | | | | | | | 1 HR FL | | | | | | | CHEMOTHER, | | | | | | | IV INFUSION, | | | | | | | EA HR FL | | | | | | | CHEMOTHER,NO | | | | | | | N-HORMONE | | | | | | | ANTI-NEOPL, | | | | | | | SUB-Q/IM FL | | | | | | | CHEMOTHER | | | | | | | HORMON | | | | | | | ANTINEOPL | | | | | | | SUB-Q/IM FL | | | | | | | | | | | | | | PALONOSETRON | | | | | | | HCL, 25 MCG | | | | | | | FL ORAL | | | | | | | DEXAMETHASON | | | | | | | E, .25 MG | | | | | | | FL INJ., | | | | | | | APREPITANT, | | | | | | | 1 MG FL | | | | | | | LORAZEPAM | | | | | | | INJECTION, 2 | | | | | | | MG FL | | | | | | | DOXORUBICIN | | | | | | | HCL | | | | | | | INJECTION, | | | | | | | 10 MG FL | | | | | | | [...] + + | 10/27/ | Hospital | [facility] | Zachary Santos | Malignant neoplasm | | 2019 | Encounter | MED CTR CHEMO | MD Dano [address] | of breast in female, | | | | INFUSION [address] [place] [address] | estrogen receptor | | | | [place], | [address] | positive, | | | | [place] [address] | | unspecified | | | | [phone] | | laterality, | | | | [...] 0.003-0.091 K/uL 0.0-0.9% 2nd 0.007-0.247 K/uL | [facility] | | 0.1-2.0% 3rd 0.018-0.456 K/uL 0.1-2.0% | - LABORATORY | + + + + + + + + | Performing | Address | City/State/Zipcode | Phone Number | | Organization | | | | + + + + + | [facility] | [address] | [place], [place] | [phone] | | [facility] | | [address] | | | - LABORATORY | | [...] | mL/min/1.73m2 | [facility] | | | [place] | RATE,ESTIMATED | | MEDICAL | | | | mL/min/1.29z8Pjwc than | | CENTER - | | [...] [address] | [place] | [phone] | | [facility] | | [address] | | | - LABORATORY | | [...] | | | | | Minutes, ONCE, [facility] 10/28/19 at | | | | | [...] 11:15 | | | | | ONCE, [facility] 10/28/19 at 1115, For 1 | | [...]
--- OUTSIDE RECORDS SUMMARY | ~2019-11-10 | XMS | Encounter Summary ---
Demographics + + + | Address | [address] | | | [place] [address] | + + + | Home Phone | | + + + | Preferred Language | Unknown | + + + | Marital Status | | + + + | Judaism Affiliation | Unknown | + + + | Race | Unknown | + + + | Ethnic Group | Unknown | + + + Author + + + | Author | [facility] | | | and [facility] | + + + | Organization | [facility] | | | and [facility] | + + + | Address | Unknown | + + + | Phone | Unavailable | + + + Support + + + + + | Name | Relationship | Address | Phone | + + + + + | Franklin Yusuf | ECON | [address] | | | | | [place], [place] | | | | | [address] | | + + + + + Care Team Providers + +------+ + | Care Septic Technician Name | Role | Phone | + +------+ + | No, Unknownpcp | PCP | | + +------+ + Encounter Details +--------+ + + + + | Date | Type | Department | Care Team | Description | +--------+ + + + + | 10/20/ | Orders Only | [facility] | Scott Marc | Malignant neoplasm | | 2020 | | MED CTR MEDICAL | J, PharmD [address] | of breast in female, | | | | [facility] CLINIC [address] [place] | estrogen receptor | | | | [address] | [place] [address] | positive, | | | | [place] [address] | [phone] | unspecified | | | | [phone] | | laterality, | | | | | | unspecified site of | | | | | | breast (HCC) | +--------+ + + + + Social History + +-------+ +--------+------+ | Tobacco Use | Types | Packs/Day | Years | Date | | | | | Used | | + +-------+ +--------+------+ | Never Assessed | | | | | + +-------+ +--------+------+ + + + | Sex Assigned at | Date Recorded | | | | + + + | Not on file | | + + + documented as of this encounter Plan of Treatment Not on filedocumented as of this encounter Visit Diagnoses + + | Diagnosis | + + | Malignant neoplasm of breast in female, estrogen receptor positive, unspecified | | laterality, unspecified site of breast (HCC) | + + documented in this encounter"
--- OUTSIDE RECORDS SUMMARY | ~2019-11-10 | XMS | Encounter Summary ---
Demographics + + + | Address | [address] | | | [place] [address] | + + + | Home Phone | | + + + | Preferred Language | Unknown | + + + | Marital Status | | + + + | Gnosticism Affiliation | Unknown | + + + | Race | Unknown | + + + | Ethnic Group | Unknown | + + + Author + + + | Author | [facility] | | | and [facility] | + + + | Organization | [facility] | | | and [facility] | [...] [place], [place] | | | | | [address] | | + + + + + Care Team Providers + +------+ + | Care Volunteer Manager Name | Role | Phone | + [...] estrogen receptor | | | | [address] | [place] [address] | positive, | | | | [place] [address] | [phone] | unspecified | | | | [phone] | | laterality, | | | | [...]
--- OUTSIDE RECORDS SUMMARY | ~2019-11-10 | XMS | Clinical Summary ---
Demographics + + + | Address | [address] | | | [place] [address] | + + + | Home Phone | | + + + | Preferred Language | Unknown | + + + | Marital Status | | + + + | Worship Affiliation | Unknown | + + + | Race | Unknown | + + + | Ethnic Group | Unknown | + + + Author + + + | Author | [facility] | | | and [facility] | + + + | Organization | [facility] | | | and [facility] [...] [place], [place] | | | | | [address] | | + + + + + Care Team Providers + +------+ + | Care Wireless Retail Manager Name | Role | Phone | [...] | | | 2019 | | | RELIABILITY TECHNICIAN | | +--------+ + + + + [...] 0.003-0.091 K/uL 0.0-0.9% 2nd 0.007-0.247 K/uL | [facility] | | 0.1-2.0% 3rd 0.018-0.456 K/uL 0.1-2.0% | - LABORATORY | + + + + + + + + | Performing | Address | City/State/Zipcode | Phone Number | | Organization | | | | + + + + + | [facility] | [address] | [place] | [phone] | | [facility] | | [address] | | | - LABORATORY | | [...] 11 | 9 - 23 mg/dL | [facility] | | | | | | [facility] | | | | | | MEDICAL | | | | | | CENTER - | | | | | | LABORATORY | | + + + + + + | Creatinine | 0.54 (L) | 0.55 - 1.02 | [facility] | | | | | mg/dL | [facility] | | | | | | MEDICAL | | | | | | CENTER - | | | | | | LABORATORY | | + + + + + + | eGFR if not | >60Comment: GLOMERULAR | >=60 | [facility] | | | | FILTRATION | mL/min/1.73m2 | [facility] | | | [place] | RATE,ESTIMATED | | MEDICAL | | | | mL/min/1.52v7Okeu than | | CENTER - | | [...] ST. | [address] | [place], [place] | [phone] | | [facility] | | [address] | | | - LABORATORY | | [...] +---------+------+ | [facility] | PHP | [id number] | 05/05/19 | [phone] | | PPO | | PLAN | [...] | | al/Fam | | 1976 | [phone] | [place] [address] | | | car | | | 0 (Home) | | + +--------+ +--------+ + + Advance Directives + + + + + | Type | Date Recorded | Patient | Explanation | | | | Forest Fire Control Officer | | + + + + + | Power of | | | | | Forging Press Lever Tender | | | | + + + + + | Advance | | | | | Directive | | | | + + + + +
--- OUTSIDE RECORDS SUMMARY | ~2019-11-10 | XMS | Encounter Summary ---
Demographics + + + | Address | [address] | | | [place] [address] | + + + | Home Phone | | + + + | Preferred Language | Unknown | + + + | Marital Status | | + + + | Church Affiliation | Unknown | + + + | Race | Unknown | + + + | Ethnic Group | Unknown | + + + Author + + + | Author | [facility] | | | and [facility] | + + + | Organization | [facility] | | | and [...] [place], [place] | | | | | [address] | | + + + + + Care Team Providers + +------+ + | Care Ditching Machine Operating Engineer Name | Role | Phone | + +------+ + | No, Unknownpcp | PCP | | + +------+ + Encounter Details +--------+ + + + + | Date | Type | Department | Care Team | Description | +--------+ + + + + | 10/26/ | Abstract | [facility] | Shruthi Bro, | | | 2019 | | MED CTR MEDICAL | TURNER OFF | | | | | ONCOLOGY CLINIC [address] | | | | | | [address] | | | | | | [place] [address] | | | | | | [phone] | | | +--------+ + + + [...]
--- OUTSIDE RECORDS SUMMARY | ~2019-11-10 | XMS | Encounter Summary ---
Demographics + + + | Address | [address] | | | [place] [address] | + + + | Home Phone | | + + + | Preferred Language | Unknown | + + + | Marital Status | | + + + | Restoration Affiliation | Unknown | + + + | Race | Unknown | + + + | Ethnic Group | Unknown | + + + Author + + + | Author | [facility] | | | and [facility] | + + + | Organization | [facility] | | | and [facility] | + + + | Address | Unknown | + + + | Phone | Unavailable | + + + Support + + + + + | Name | Relationship | Address | Phone | + + + + + | Franklin Yusuf | ECON | [address] | | | | | , [place] | | | | | [address] | | + + + + + Care Team Providers + +------+ + | Care Integration Technician Name | Role | Phone | + +------+ + | No, Unknownpcp | PCP | | + +------+ + Encounter Details +--------+ + + + + | Date | Type | Department | Care Team | Description | +--------+ + + + + | 10/27/ | Hospital | [facility] | Zachary Santos | Malignant neoplasm | | 2020 | Encounter | [facility] | [address], [address] | of breast in female, | | | | ONCOLOGY CLINIC [address] [place], [place] | estrogen receptor | | | | [address] | [phone] | positive, | | | | [place] [address] | | unspecified | | | | [phone] | Scott Marc, | laterality, | | | | | PharmD [address] | unspecified site of | | | | | [address] | breast (HCC) | | | | | [place] [address] | (Primary Dx) | | | | | [phone] | | | | | | | | +--------+ + + + [...] + + documented as of this encounter Medications at Time of Discharge [...] TO 2 TABLETS | | 0 | 10/18/19 | | | oxyCODONE-acetaminop | BY MOUTH [...] documented as of this encounter Progress Notes Scott Marc, PharmD - 10/28/2019 11:40 AM PDTFormatting of this note might be differ ent from the original. Clinical Oncology Pharmacy Services Progress Note Chemotherapy Education Session [facility] Pt. Name/Age/: Alicia Yusuf 44 y.o. 1975 Med. Record Number: [id number] Identifying Statement: Alicia Yusuf is a 44 y.o. female from [address] [place] [address] with The encounter diagnosis was Malignant neoplasm of breast in female, estrogen receptor positive, unspecified laterality, unspecified site of breast (HCC). The patient chart and medications were reviewed in detail and the patient was seen and exam ined. Patient was referred to Clinical Oncology Pharmacist for chemotherapy education and side ef fect management. Chemotherapy dose and frequency: AC q 21 days Chemotherapy start date: 10/28/19 Past Medical and Surgical History, Social History and Problems: Past Medical History: Diagnosis Date HTN (hypertension) No past surgical history on file. Social History Socioeconomic History Marital status: Spouse name: Not on file Number of children: Not on file Years of education: Not on file Highest education level: Not on file Occupational History Not on file Social Needs Financial resource strain: Not on file Food insecurity Worry: Not on file Inability: Not on file Transportation needs Medical: Not on file Non-medical: Not on file Tobacco Use Smoking status: Not on file Substance and Sexual Activity Alcohol use: Yes Comment: occasionally Drug use: Never Sexual activity: Not on file Lifestyle Physical activity Days per week: Not on file Minutes per session: Not on file Stress: Not on file Relationships Social connections Talks on phone: Not on file Gets together: Not on file Attends mandaen service: Not on file Active member of club or organization: Not on file Attends meetings of clubs or organizations: Not on file Relationship status: Not on file Intimate partner violence Fear of current or ex partner: Not on file Emotionally abused: Not on file Physically abused: Not on file Forced sexual activity: Not on file Other Topics Concern Not on file Social History Narrative Not on file Patient Active Problem List Diagnosis Breast cancer Review of Systems: Constitutional: Denies fever or chills, or weight loss. Eyes: Denies change in visual acuity HEENT: Denies nasal congestion or sore throat Respiratory: Denies cough or shortness of breath Cardiovascular: Denies chest pain or edema GI: Denies abdominal pain, nausea, vomiting, bloody stools or diarrhea : Denies dysuria urgency or frequency. Musculoskeletal: Denies any bone pain Integument: Denies rash, bruising, petechia Neurologic: Denies headache, focal weakness or sensory changes Lymphatic: Denies swollen glands Review of systems as above, otherwise negative Scheduled Medications: Current Outpatient Medications on File Prior to Encounter Medication Sig Dispense Refill dexamethasone (DECADRON) 4 mg tablet ibuprofen (ADVIL,MOTRIN) 600 MG tablet TAKE 1 TABLET BY MOUTH EVERY 6 HOURS NEEDED F OR MODERATE PAIN LORazepam (ATIVAN) 1 mg tablet Multiple Vitamin (MULTIVITAMIN PO) Take by mouth. ondansetron (ZOFRAN) 8 MG tablet TAKE 1 TABLET BY MOUTH TWICE DAILY FOR 2 DAYS AFTER CH EMOTHERAPY oxyCODONE-acetaminophen (PERCOCET) 7.5-325 mg per tablet TAKE 1 TO 2 TABLETS BY MOUTH E VERY 6 HOURS NEEDED Probiotic Product (PROBIOTIC PO) Take by mouth. Current Facility-Administered Medications on File Prior to Encounter Medication Dose Route Frequency Provider Last Rate Last Dose [COMPLETED] aprepitant (CINVANTI) injection 130 mg 130 mg IV Push Once Zachary sneed MD 130 mg at 10/28/19 1116 cyclophosphamide (CYTOXAN) 1,000 mg in sodium chloride 0.9% 200 mL infusion 600 mg/m2 (Order-Specific) Intravenous Once Zachary Santos MD [COMPLETED] dexamethasone (DECADRON) tablet 12 mg 12 mg Oral Once Zachary Santos MD 12 mg at 10/28/19 1113 DOXOrubicin (ADRIAMYCIN) 100 mg in sodium chloride 0.9% 200 mL infusion 60 mg/m2 (Orde r-Specific) Intravenous Once Zachary Santos MD heparin 100 units/mL flush injection 500 Units 5 mL Intracatheter PRN Zachary schumacher MD [COMPLETED] palonosetron (ALOXI) injection 0.25 mg 0.25 mg Intravenous Once Zachary Santos MD 0.25 mg at 10/28/19 1115 Objectives: Wt Readings from Last 3 Encounters: 10/28/19 64.5 kg (142 lb 3.2 oz) Patient Education: Provided teaching on the following, including but not limited to: Pathophysiology of cancer. Brief mechanism of action of anticancer agent(s) and their indications. Supportive medications How to take drug (ie. with or without food, swallow whole, do not crush) Drug/drug and drug/food interactions Lab tests necessary in monitoring the medication for toxicity and efficacy Precautions/warnings Reproductive alterations/precautions and impact on future fertility Side effects and side effect management tips Planned duration of treatment When to call the physician or oncology pharmacist Assesment/Plan: 1. We discussed the high risk nature of the treatment regimen, as well as side effect manag ement. The patient demonstrated understanding and all questions were answered, and wishes to proceed with AC therapy. 2. Antiemetic regimen: Ondansetron 8 mg PO BID for 2 days after each chemotherapy, then anita ry 8 hours as needed for nausea. Dexamethasone 4 mg PO BID for 2 days after each chemotherap y. Lorazepam 1 mg PO every 4-6 hours as needed for nausea. 3. Patient information and handouts were given to the patient. 4. Chemotherapy consent form was signed. 5. Please consult clinical oncology pharmacist for any further medication related education . 6. Thank you. Electronically signed by: Scott Marc PharmD 10/28/2019 11:57 AM PDT documented in this encounter Plan of Treatment Not on filedocumented as of this encounter Visit Diagnoses + + | Diagnosis | + + | Malignant neoplasm of breast in female, estrogen receptor positive, unspecified | | laterality, unspecified site of breast (HCC) - Primary | + + documented in this encounter"
--- OUTSIDE RECORDS SUMMARY | ~2019-11-10 | XMS | Encounter Summary ---
Demographics + + + | Address | [address] | | | [place] [address] | + + + | Home Phone | | + + + | Preferred Language | Unknown | + + + | Marital Status | | + + + | Alevism Affiliation | Unknown | + + + | Race | Unknown | + + + | Ethnic Group | Unknown | + + + Author + + + | Author | [facility] | | | and [facility] | + + + | Organization | [facility] | | | and [...] , [place] | | | | | [address] | | + + + + + Care Team Providers + +------+ + | Care Financial Investment Adviser Name | Role | Phone | + +------+ + | No, Unknownpcp | PCP | | + +------+ + Encounter Details +--------+ + + + + | Date | Type | Department | Care Team | Description | +--------+ + + + + | 10/27/ | Hospital | [facility] | Zachary Santos | Malignant neoplasm | | 2020 | Encounter | [facility] | [address], [address] | of breast in female, | | | | ONCOLOGY CLINIC [address] [place], [place] | estrogen receptor | | | | [address] | [phone] | positive, | | | | [place] [address] | | unspecified | | | | [phone] | Scott Marc, | laterality, | | | | | PharmD [address] | unspecified site of | | | | | [address] | breast (HCC) | | | | | [place] [address] | (Primary Dx) | | | | | [phone] | | | | | | | [...] Pharmacy Services Progress Note Chemotherapy Education Session [facility] Pt. Name/Age/: Alicia Yusuf 44 y.o. 1975 Med. Record Number: [id number] Identifying Statement: Alicia Yusuf is a 44 y.o. female from [address] [place] [address] with The encounter diagnosis was Malignant neoplasm [...] file Gets together: Not on file Attends voodoo service: Not on file Active member of [...]
[~2019-11-10 17:56] MED LIST changes: +IBUPROFEN600 MG PO; -MULTIVITAMINS1 EAC7; +MULTIVITAMINS1 EAC7 PO; +OXYCODON-ACETA1 EAC2 PO; +PROBIOTIC1 EAC1 PO; +TYLENOL EXTRA500 MG PO
--- OUTSIDE RECORDS SUMMARY | 2019-11-10 18:00 | XMS ---
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 - 2 Visits in 30 Days CARE PROVIDERS There are no care providers on record at this time. John has no Care Guidelines for this patient. [facility] MO[facility] NOTE: Visits indicate total known visits. ED/C VISIT TRACKING (12 MO.) [facility] [place] [facility] COMPLAINT: - FEVER, VOMITING, SHAKING 10/15/2019 08:[address] [facility] [place] TYPE: Emergency COMPLAINT: - BREAST PAIN DIAGNOSES: - Mastodynia - Malignant neoplasm of unspecified site of right female breast INPATIENT VISIT TRACKING (12 MO.) No inpatient visits to display in this time frame [email or web address]
[2019-11-10] MEDS ORDERED: LISINOPRIL-HCT1 EACH PO (20:06)
[2019-11-10] MEDS ORDERED: ONDANSETRON HCL8 MG PO (20:06)
[2019-11-10] MEDS ORDERED: DEXAMETHASONE4 MG PO (20:07)
[2019-11-10] MEDS ORDERED: DOXYCYCLINE HY100 M3 PO (20:07)
[2019-11-10] MEDS ORDERED: LORAZEPAM1 MG PO (20:07)
--- NOTE | 2019-11-10 22:00 | NUR ---
pt ARRIVES TO MEDICAL FLOOR VIA STRETCHER. AMBULATORY TO HOSPITAL BED. ORIENTATION TO ROOM PROVIDED. SBA TO RESTROOM FOR VOID AND BACK TO BED. PUDDING, WATER, COOKIE PROVIDED REQUESTED. IV SITE AND PORT FLUSHED WNL, IVF INFUSING PORT, GOOD BLOOD RETURN.
--- NOTE | 2019-11-10 22:34 | EKG ---
[facility] [address] [facility] [place], [place] [address] Signed Sinus tachycardia Otherwise normal ECG No previous ECGs available Confirmed by ANA WARREN MD ([id number]) on 11/10/2019 10:34:43 PM Electronically Signed By: ANA WARREN MD 11/10/19 2234 PATIENT NAME: BLAKE RHOADES Electrocardiogram DATE OF : 79 PHYSICIAN: ANA WARREN MD REPORT #: [id number] REPORT IS CONFIDENTIAL AND NOT TO BE RELEASED WITHOUT AUTHORIZATION
--- NOTE | 2019-11-10 23:17 | NUR ---
PHONE CALL TO TELEPHARMACY, UNABLE TO FIND SCHEDULED GRANIX. NOTIFIED, TELEPHONE ORDER TO ADMINISTER FORMULARTY MEDICATION THAT WE HAVE IN STOCK. QUALITY CONTROLLER RN NOTIFIED, GUM ROLLING MACHINE OPERATOR PHARMACIST RUBINA TO COME IN FOR MEDICATION RETRIEVAL.
--- NOTE | 2019-11-10 23:26 | NUR ---
PT ADMITTED AT 2150, COOP WITH ASSESSMENT. ALERT AND ORIENTED. CHRISTIANA GARDINER, L PORTACTH PATENT, ACCESSED IN ED. IVF AND ABX INFUSING. COOP WTIH ASSESSMENT, LUNGS CLEAR, ON ROOM AIR, ON NEUTROPENIC PRECAUTIONS. TOLERATING DIET AND FLUIDS AT THIS TIME.DR WARREN AWARE OF GRANIX NOT AVAILABLE YET, DYE WORKER PHARMACIST NOTIFIED, WILL GIVE MED WHEN AVAILABLE. NO C/O N/V. HAS VOIDED
--- NOTE | 2019-11-11 00:11 | NUR ---
Pt up to br, voided large amounts of clear yellow urine, backa to bed 1pa. Granix 300mcg given sc L upper arm, information r/t med and d/e given verbally and written to pt, stated understanding.
--- NOTE | 2019-11-11 03:36 | NUR ---
up to br, voided, back to bed. No c/o pain. R breast red warm, orange peel look and open area midlower breast,scant amount serous drainage, pad in place ivf infusing. call light at bedside
--- NOTE | 2019-11-11 05:16 | NUR ---
PATIENT RESTING IN BED, RN AT BEDSIDE. CALL LIGHT IN REACH, NO FURTHER NEEDS AT THIS TIME.
--- NOTE | 2019-11-11 05:18 | NUR ---
TEMP 100.4, MEDICATED WITH TYLENOL 650MG PO, WARM BLANKET REMOVED, ROOM TEMP DECREASED TO 69. CDB DONE.
--- NOTE | 2019-11-11 05:22 | NUR ---
PT AWAKES EASILY, NO C/O PAIN AT THIS TIME. WAS MEDICATED WITH OXYCODONE 5MG X1 PER R BREAST PAIN. R BREAST MID LOWER AREAS LEASION WITH SCANT AMOUNT OF WITH SCANT AMOUNT OF SEROUS DRAINAGE AT BASE, ABD TO AREA, NO ODOR R BREAST REDNESS AND TENDERNESS FROM BREAST TO PAST AXILLA. BREAST WITH ORANCE PEEL LOOK, FIRM, TENDER WARM TO TOUCH, SL RFA, IVF INFUSING L PORTACATH, NO C/O ADVERSE REACTION TO VANCOMYCIN AND CEFEPIME. MEDICATED WITH TYLENOL 650MG PO PER T 100.4, WARM BLANKET REMOVED AND ROOM TEMP DECREASED TO 69, CDB DONE. PT RECEIVED GRANIX 300MCG SC LAS NIGHT PER ORDERS, TOLERATED WELL, NO C/O ADVERSE REACTION.COOPERAIVE. TOLERATING FLUIDS WEL, CALL LIGHT AT BEDSIDE, WALKS TO BR WITH 1PASBA, VOIDING QS CLEAR YELLOW URINE. ON NEUTROPENIC PRECAUTIONS.
--- NOTE | 2019-11-11 07:47 | NUR ---
MORNING ASSESSMENT DONE, PATIENT IS RESTING IN BED, REPORTS HER RIGHT BREAST PAIN IS 4/10 AND THIS IS TOLERABLE. ABX INFUSING TO RIGHT ARM PERIPHERAL SITE. PLAN TO INSTILL ALTEPLASE IN LEFT CHEST PORT. PATIENT IS WEARING A MASK AT THIS TIME.
--- NOTE | 2019-11-11 07:50 | NUR ---
Met with Alicia. She states she lives in [place] with her spouse and 6 yo. She has twin adult daughters. She lives in a 1 story home without steps. She states good support for spouse and daughters. Her primary needs are childcare when she needs to rest. Daughters come and stay with her to allow her rest. She states he spouse is currently on vacation and staying home with her. She had a child development associate teacher in her home,but has stopped at this time. She denies concerns for finances at this time and denies assistance with energy cost for the home. He main complaint is pain at the wound site on her breast. She does not like to take pain medications as this makes her sleep. Rn is currently working on this.
--- NOTE | 2019-11-11 08:01 | NUR ---
ALTEPLASE INSTILLED TO LEFT PORTACATH. PLAN TO RECHECK IN 30 MINUTES, THEN 120 MINUTES PER DIRECTIONS.
--- NOTE | 2019-11-11 10:18 | NUR ---
FIRST DOSE OF ALTEPLASE ALLOWED 2ML OF BLOOD RETURN FROM PORT AFTER 120 MINUTES. AGGRESSIVELY FLUSHED WITH NORMAL SALINE. SECOND DOSE OF ALTEPLASE INSTILLED. PATIENT UP TO BATHROOM TO VOID, PLACED CAMISOLE ON SO ABD PADS STAY UNDER RIGHT BREAST. VANCO INFUSING TO RIGHT PERIPHERAL SITE.
--- NOTE | 2019-11-11 10:59 | NUR ---
ABLE TO PULL 10ML OF BLOOD FROM LEFT CHEST PORT, DISCARDED BLOOD, FLUSHED WITH 20ML OF NORMAL SALINE. MAINTENANCE IVF RESUMED. 5MG OF OXYCODONE GIVEN FOR 5/10 RIGHT BREAST PAIN.
--- NOTE | 2019-11-11 13:10 | NUR ---
PATIENT SITTING UP TO EAT LUNCH, SPOUSE IN ROOM. IVF INFUSING TO LEFT PORT. PATIENT DENIES OTHER NEEDS
--- NOTE | 2019-11-11 14:26 | NUR ---
FOUR HOUR IV INFUSION STARTED, PATIENT ENDORSES THAT SHE IS STARTING TO FEEL A BIT BETTER.
--- NOTE | 2019-11-11 15:34 | NUR ---
PATIENT UP TO BATHROOM TO VOID. DRESSING TO LOWER ASPECT OF RIGHT BREAST IS A NON STICK GUAZE TO WOUND WITH ABD ON TOP. PATIENT GIVEN 5MG OF PO OXYCODONE FOR 5/10 RIGHT BREAST PAIN.
--- NOTE | 2019-11-11 17:28 | NUR ---
PATIENT HAS DONE WELL TODAY, IV ABX, STAND BY ASSIST TO BATHROOM, P.O. PAIN MEDICATIONS. PATIENT SELF-DRESSES RIGHT BREAST WOUND.
--- NOTE | 2019-11-11 17:39 | NUR ---
PATIENT UP TO VOID, TEARFUL, SAYS SHE, "FEELS WEAK AND HOT." TEMP IS 98.2. WINDOW SHADES CLOSED, PATIENT IS GOING TO TRY AND NAP FOR A BIT.
--- NOTE | 2019-11-11 18:34 | NUR ---
PATIENT FEBRILE AT 100.3, CALL TO DR. VARGAS, PLAN TO WATCH TEMP, DO NOT GIVE TYLENOL AT THIS TIME. WE WILL PLAN TO DO BLOOD CULTURES IF TEMP CONTINUES TO RISE.
--- NOTE | 2019-11-11 21:05 | NUR ---
pts VS AND I&OS COMPLETE. pt TOILETED. NOTHING FURTHER NEEDED AT THIS TIME.
--- NOTE | 2019-11-11 21:38 | NUR ---
crying, anxious, calmed down, medicated with Ativan 0.5mg per anxiety, safety reassured, fever down, tolerating liquids well, no n/v, on room air. R breast w/o changes, non adhesive pad to lower R breast wound, breast tender, warm, red, orange peel look, firm and tender to touch. sl patent. L portach patent. ivf and abx infusing. Turns self in bed. cooperative
--- NOTE | 2019-11-12 00:34 | NUR ---
HELPED PT TO THE BATHROOM AND BACK TO BED. TURNED UP HER HEAT IN HER ROOM PER HER REQUEST. BEDSIDE TABLE AND CALL LIGHT IN REACH.
--- NOTE | 2019-11-12 02:20 | NUR ---
PT AWAKE, UP TO BR, VOIDED, WENT FOR A WALK DOWN LONG HALLWAYS AND BACK UP, TOLERATED WELL, 1PA. C/O R BREAST PAIN PRIOR TO GOING TO BR, MEDICATED WTIH OXYCODONE 5MG PO AT THAT TIME, ON RETURN FROM WALK WAS MEDICATED WITH THE SECOND DOSE OXYCODONE 5MG AT THAT TIME TO MAKE A TOTAL OF 10MG PO. BACK TO BED. NO N/V, IMPROVED AFFECT, STILL DEPRESSEND BUT NOT ANXIOUS OR TEARY EYED. IVF INFUAING, NO C/O ADVERSE REACTION TO ABX. NON ADHERENT PAD TO R BREAST WPUND, DRAINING SCANT AMOUNT OF SS DRAINAGE, NO ODOR.
--- NOTE | 2019-11-12 06:16 | NUR ---
pt awake, up to br, voiding large amounts of clear yellow urine, tolerating fluids and diet well, no c/o n/v, ivf infusing, no adverse reaction to iv abx. . yared cath patent , pt has been medicated per c/o r breast pain x1 with goos pain coantrol, with ativan x1 per anxiety and crying episodes with good control, walked hallways tolerated well, R breast w/o changes, serous drainage from low mid r breast lesion present, no odor, non adherent pad in place. call light at bedside
--- NOTE | 2019-11-12 07:33 | NUR ---
REPORT RECIEVED FROM JOHN ALAS.
--- NOTE | 2019-11-12 08:03 | NUR ---
MORNING ASSESSMENT DONE. PATIENT GIVEN 10MG OF OXYCODONE FOR 5/10 RIGHT BREAST PAIN. PATIENT IS AWAITING BREAKFAST. PATIENT REPORTS REDUCED DRAINAGE FROM RIGHT BREAST.
--- NOTE | 2019-11-12 08:50 | NUR ---
Spoke with Alicia, she is feeling somewhat better today. Eating breakfast. UPdated Dr. Sánchez notified of pain at open wound and he will consider a topical ointment.
--- NOTE | 2019-11-12 09:37 | NUR ---
PATIENT SITTING UP IN BED, SEEMS TO HAVE BETTER APPETITE TODAY.
--- NOTE | 2019-11-12 10:01 | NUR ---
PATIENT AWAKE IN BED. VITALS AND I&OS CHARTED. GARBAGE EMPTIED. NO OTHER NEED AT THIS TIME
--- NOTE | 2019-11-12 10:42 | NUR ---
IV YOANO ARRIVED FROM PHARMACY, NOW INFUSING. PATIENT DENIES NEED FOR PAIN MEDIDCATIONS AT THIS TIME. PATIENT UP TO AMBULATE INDEPENDANTLY TO BATHROOM TO VOID.
--- NOTE | 2019-11-12 13:18 | NUR ---
PATIENT GIVEN 10MG OF OXYCODONE FOR 6/10 RIGHT BREAST PAIN.
--- NOTE | 2019-11-12 14:06 | NUR ---
DR. VARGAS IN TO SEE PATIENT.
--- NOTE | 2019-11-12 15:37 | NUR ---
Medications reconciled using pharmacy fill records.
--- NOTE | 2019-11-12 17:03 | NUR ---
VITALS AND I&OS CHARTED. GARBAGE EMPTIED. FRESH ICE WATER GIVEN, CALL LIGHT IN REACH, NO OTHER NEEDS
--- NOTE | 2019-11-12 17:27 | NUR ---
PATIENT IS FEELING BETTER THIS EVENING, SITTING UP IN BED. PATIENT DENIES NEEDS AT THIS TIME, HAS BEEN MUCH LESS TEARFULL TODAY.
--- NOTE | 2019-11-12 19:00 | NUR ---
SHIFT REPORT RECEIVED FROM DIAZ CAREY AT BEDSIDE. PT AWAKE AND TALKING ON THE PHONE, DENIES NEEDS. IV VANCO INFUSING, SITE WNL. DRESSING INTACT. CALL LIGHT IN REACH.
--- NOTE | 2019-11-12 20:45 | NUR ---
IV VANCO COMPLETE, PORT DRESSING INTACT. SITE FLUSHED WITH NS AND HEP LOCKED, BRISK BLOOD RETURN NOTED. VSS, ASSESSMENT COMPLETE. PT DENIES PAIN AND NAUSEA. NONADHERENT DRESSING TO RIGHT BREAST AREA WITH ABD, WILL MONITOR. PT INDEPENDENT IN ROOM. NO FURTHER NEEDS, CALL LIGHT IN REACH.
--- NOTE | 2019-11-12 22:30 | NUR ---
SCHEDULED IV ABX INFUSING PER MD ORDERS, SITE WNL. BRISK BLOOD RETURN NOTED. PT DENIES FURTHER NEEDS, CALL LIGHT IN REACH.
--- NOTE | 2019-11-13 00:29 | NUR ---
PT RESTING IN BED, IV ABX INFUSING. DRESSING INTACT. PT REPORTS THE ABX MAKING HER STOMACH FEEL "BUBBLY", RESOLVED AFTER LIFTING HOB. DENIES NEEDS, CALL LIGHT IN REACH.
--- NOTE | 2019-11-13 02:06 | NUR ---
IV ABX INFUSING, SITE REMAINS WNL. EYES CLOSED, RR EVEN AND UNLABORED. NO DISTRESS NOTED. CALL LIGHT IN REACH.
--- NOTE | 2019-11-13 02:30 | NUR ---
SCHEDULED IV VANCO INFUSING PER MD ORDERS, SITE WNL. BRISK BLOOD RETURN NOTED. ASSESSMENT COMPLETE, NO NEW CHANGES OR CONCERNS. NO INCREASED SWELLING TO RIGHT BREAST. WILL MONITOR. PT REPORTS TOLERABLE 2/10 PAIN, DENIES NEED FOR MEDICATION. CALL LIGHT IN REACH.
--- NOTE | 2019-11-13 03:44 | NUR ---
IV VANCO REMAINS INFUSING, SITE WNL. PT RESTING IN BED WITH EYES CLOSED. RR EVEN AND UNLABORED. CALL LIGHT IN REACH.
--- NOTE | 2019-11-13 06:28 | NUR ---
LAB DRAW COMPLETE AND SENT TO LAB. SCHEDULE IV ABX GIVEN (SEE EMAR). BRISK BLOOD RETURN NOTED AFTER PT LAYED ON BACK WITH LEFT ARM UP. PT REPORTS SOME INDIGESTION, SCHEDULED ANTACID FOR AM MEDS, PT OKAY WITH WAITING. CRACKERS GIVEN, PT INSTRUCTED TO NOTIFY HYDRAULIC BARKER OPERATOR IF INDIGESTION WORSENS. PT VERBALIZES UNDERSTANDING. NO FURTHER NEEDS, CALL LIGHT IN REACH.
--- NOTE | 2019-11-13 07:32 | NUR ---
while giving dayshift rn report, pt teary eyed and emotional regarding hospitalization. prn anxiety med given (see emar). no further needs, call light in reach.
--- NOTE | 2019-11-13 07:49 | NUR ---
PATIENT RESTING IN BED. WHITE BOARD UPDATED. CALL LIGHT WITHIN REACH. NO OTHER NEEDS AT THIS TIME
--- NOTE | 2019-11-13 09:06 | NUR ---
PT VERY TEARFUL THIS MORNING DURING REPORT. SHEELA LOPEZ NIGHTSHIFT ADMINISTERED PRN ATIVAN AT END OF SHIFT. PT NOW SITTING UP IN BED EATING BREAKFAST. DENIES PAIN OR NAUSEA. NO LONGER TEARFUL, ENGAGES IN CONVERSATION, LAUGHS. RIGHT CHEST PORT ACCESSED AND ANTIBIOTICS INFUSING WNL, DRESSING CDI. RIGHT BREAST WITH SEVERE INFLAMMATION, REDDENED AND WARM TO THE TOUCH, LARGE ULCERATION TO UNDERSIDE OF BREAST. NON ADHERANT DRESSING AND ABD IN PLACE, SMALL AMOUNT OF SEROSANGUINOUS DRAIANGE NOTED. DRESSING CHANGED, NEW NON ADHERANT AND ABD APPLIED. PT DENIES FURTHER NEEDS OR CONCERNS, CALL LIGHT WITHIN REACH.
--- NOTE | 2019-11-13 10:18 | NUR ---
PATIENT SITTING UP IN BED. VITAL SIGNS AND I&O DONE. CALL LIGHT WITHIN REACH. NO OTHER NEEDS AT THIS TIME
--- NOTE | 2019-11-13 10:45 | NUR ---
PT SITTING UP IN BED AWAKE. CONT TO DENY PAIN. PORT FLUSHED WITH 20ML OF NS USING PULSATILE FLUSH. GOOD BLOOD RETURN NOTED, DRESSING CDI. IV ABX STARTED. DENIES NEEDS OR CONCERNS AT THIS TIME. CALL LIGHT WITHIN REACH.
--- NOTE | 2019-11-13 13:00 | NUR ---
PATIENT SITTING UP IN BED. IN ROOM. VITAL SIGNS AND I&O DONE. CALL LIGHT WITHIN REACH. NO OTHER NEEEDS AT THIS TIME
[2019-11-13] MEDS ORDERED: CEFPODOXIME PR200 MG PO (14:30)
--- NOTE | 2019-11-13 14:33 | NUR ---
DR. VARGAS ROUNDSANDRA ON PT. PT REPORTS 6/10 BACK PAIN, MEDICATED WITH PRN OXY. NO OTHER CONCERNS.
[2019-11-13] MEDS ORDERED: OXYCODONE HCL5 MG PO (14:34)
[2019-11-13] MEDS ORDERED: LORAZEPAM0.5 MG PO (14:34)
--- NOTE | 2019-11-13 15:30 | NUR ---
LEFT CHEST PORT FLUSHED WITH NS. HEPARIN LOCKED AND DEACCESSED. PT CLIFFORD WELL. BAND AIDE APPLIED. DC INSTRUCTIONS REVIEWED WITH PT. NO QUESTIONS AT THIS TIME. PT DRESSED INDEPENDENTLY.
--- NOTE | 2019-11-13 15:40 | NUR ---
PATIENT SITTING UP ON THE EDGE OF THE BED. THE FINAL VITAL SIGNS WERE OBTAINED PRIOR TO DISCHARGE FROM THE UNIT
== END 2019-11-13 15:45 | disposition home or self-care (01) | DRG 810 ==
LOC: ED 17:56 → MS 20:55
PROVIDERS: ADMIT Internal Medicine
DX: D70.1 Agranulocytosis secondary to cancer chemotherapy (principal); T45.1X5A Adverse effect of antineoplastic and immunosuppressive drugs, initial encounter; C50.911 Malignant neoplasm of unspecified site of right female breast; R50.81 Fever presenting with conditions classified elsewhere; Z20.828 Contact with and (suspected) exposure to other viral communicable diseases; E87.6 Hypokalemia; Z79.899 Other long term (current) drug therapy; Z79.52 Long term (current) use of systemic steroids
CPT/HCPCS: 71045; 80048; 80053; 80202; 81001; 83605; 85025; 93005; 93010; 96361; 96374; 96375; 99285-25; C9803; J0692; J1447; J1650; J2270; J2543; J2997; J3370; J3480; J7030; J7060; U0002

== ENCOUNTER 2022-11-27 06:00 | Day surgery (SDC) | payer MEDICARE ==
[2022-11-18 16:27] VITALS: BP 149/102
[~2022-11-27] VITALS: Ht 152.4 cm; Wt 72.7 kg
--- NOTE | ~2022-11-27 | OR ---
[facility] [address] [place], [place] [address] Draft DATE OF OPERATION: 11/27/2022 SURGEON: Kimber Singh MD PADDED PRODUCTS INSPECTOR TRIMMER: Jules Nascimento MD PREOPERATIVE DIAGNOSIS: Estrogen receptor-positive breast cancer. POSTOPERATIVE DIAGNOSIS: Estrogen receptor-positive breast cancer. PROCEDURE: Total laparoscopic hysterectomy, bilateral salpingo-oophorectomy, cystoscopy. ANESTHESIA: General ET. ESTIMATED BLOOD LOSS: 25 mL. DRAINS: Miller catheter. INDICATIONS AND FINDINGS: The patient is a 47-year-old female who was diagnosed with estrogen receptor positive breast cancer. She did undergo chemo at which point her periods stopped. However, her periods have restarted again and because of the concern with her cancer it was felt that her estrogen suppression needed to be more complete. She had received some goserelin. She was also on anastrozole. At the time of surgery, exam under anesthesia was normal. On the time of laparoscopy, the pelvis appeared normal as well. DESCRIPTION OF PROCEDURE: The patient was prepped and draped in the dorsal lithotomy position. A weighted speculum was placed. The anterior lip of the cervix was visualized and grasped with a single-tooth tenaculum. The cavity was sounded and the cervix dilated. The VCare cannula was then placed and the balloon inflated at the fundus. The tenaculum and speculum removed. The cup was fitted over the cervix and a locking cap fitted into place. Attention was directed above. The infraumbilical area was injected with 0.5% PATIENT NAME: BLAKE RHOADES OPERATIVE REPORT DATE OF : 79 REPORT #: [id number] PHYSICIAN: KIMBER SINGH MD PCP: LEONIDES FUENTES PAC REPORT IS CONFIDENTIAL AND NOT TO BE RELEASED WITHOUT AUTHORIZATION [facility] [address] [place], [place] [address] Draft Marcaine plain. The knife was used to incise the skin. Each layer was serially elevated, incised until the fascia was opened and identified. Stay sutures of 0 Vicryl were placed. The peritoneum was opened bluntly. Givens was then placed and the balloon inflated. It was tied into place. Placement of the scope confirmed proper positioning. Evaluation of the pelvis confirmed this was appropriate laparoscopic case. The secondary ports were then placed after the abdomen was adequately inflated. These were slightly lateral and lower than the umbilicus. Each of these areas were transilluminated, injected with the Marcaine, incision made with a knife and the trocars placed under direct vision. The left-sided port was a 5 mm port. The right port was a Veress needle followed by the expanding port. The LigaSure [place] device was then used to serially coagulate and divide the patient's right infundibulopelvic ligament. A 0 PDS Endoloop was placed over the infundibulopelvic ligament to further assure hemostasis. The broad ligament on the patient's right was then serially divided and coagulated to the level of the round ligament. Following this, attention was directed to the patient's left side. There were some adhesions of the omentum to the left pelvic sidewall, these were divided bluntly. The infundibulopelvic ligament could then be seen much easier. The infundibulopelvic ligament was then serially coagulated and divided. The 0 PDS Endoloop was again used to assure hemostasis. The patient's left broad ligament was serially coagulated and divided down to the round ligament. This was divided after coagulating. The anterior leaf of the peritoneum could then be incised allowing for development of a partial bladder flap. She did have some scarring related to prior . This was easily taken down, however. The peritoneum posteriorly was taken down as well. Attention was directed to the patient's right side. The round ligament was serially coagulated and divided. The anterior leaf of the peritoneum incised allowing for completion of the bladder flap. The peritoneum was taken down posteriorly as well. Further dissection was done to isolate the uterine vessels. These were coagulated and divided at the level of the internal os as well. This was done bilaterally. Further dissection was done both posteriorly and anteriorly, allowing for the cup to be felt. The [employer] device was then used to separate the specimen from the vaginal cuff. This was begun posteriorly at the patient's right uterosacral ligament, come across posteriorly and wrapped around anteriorly and began again posteriorly and wrapped on the right and anteriorly. The specimen was retrieved vaginally intact. The vagina was packed with a glove with a wet lap to allow for reaccumulation of the pneumoperitoneum. Attention was redirected above and the abdomen was copiously irrigated, inspected, and the cuff appeared to be hemostatic. The vaginal cuff was then closed using the Endo Stitch. This was begun at the patient's right uterosacral ligament, taking care to incorporate the vaginal mucosa both posteriorly and anteriorly. This was carried out to the patient's left uterosacral ligament and back to the center. Following this, again, the pelvis was evaluated and seen to be hemostatic. The procedures were made for closure. The instruments removed from the abdomen after allowing as much CO2 as possible to escape. The fascial incision of the umbilicus was closed with a running suture of 0 Vicryl. The stay sutures were tied across as well. PATIENT NAME: BLAKE RHOADES OPERATIVE REPORT DATE OF : 79 REPORT #: [id number] PHYSICIAN: KIMBER SINGH MD PCP: LEONIDES FUENTES PAC REPORT IS CONFIDENTIAL AND NOT TO BE RELEASED WITHOUT AUTHORIZATION [facility] [address] [place] [id number] Draft The skin incisions were closed with subcuticular sutures of 3-0 Vicryl Rapide. Attention was directed down below and the vaginal pack removed. The Miller catheter was removed and cystoscopy was done. She had received IV fluorescein. The 30 degree cystoscope was then introduced and there was no evidence of any bladder injury. Both of the ureteral orifices were seen almost immediately and each of these had free spill of urine seen almost immediately. No fluorescein was seen at that time. Following this, the bladder was drained and the Miller catheter replaced. All sponge and needle counts were correct. She tolerated procedure well and was taken to the recovery room in good condition. MD GILDA Maria/DINESHL /[id number] Copies: ~ PATIENT NAME: BLAKE RHOADES OPERATIVE REPORT DATE OF : 79 REPORT #: [id number] PHYSICIAN: KIMBER SINGH MD PCP: LEONIDES FUENTES PAC REPORT IS CONFIDENTIAL AND NOT TO BE RELEASED WITHOUT AUTHORIZATION
[~2022-11-27 06:00] MED LIST changes: +ACETAMINOPHEN500 MG PO; +CALCIUM500 M1 PO; +CEFPODOXIME PR200 MG PO; +CLARITIN10 MG PO; +DEXAMETHASONE4 MG PO; +DOXYCYCLINE HY100 M3 PO; +ELDERBERRY350 MG PO; +FEMARA2.5 MG NG; +GLUTASOLVE15 GM PO; +IBU600 MG PO; +LISINOPRIL-HCT1 EACH PO; +LISINOPRIL5 MG PO; +LORAZEPAM0.5 MG PO; +LORAZEPAM1 MG PO; +MAGNESIUM250 M1 PO; +MIRALAX17 GM PO; +MOTRIN IB200 MG PO; +ONDANSETRON HCL8 MG PO; +OXYCODONE HCL5 MG PO; +VITAMIN D310 MC4 PO
[2022-11-27 06:10] VITALS: BP 120/87
--- NOTE | 2022-11-27 10:23 | NUR ---
11/27/22 1023 [address] 1010 PT TO PACU SLEEPING ORAL AIRWAY IN PLACE. O2 6L VIA MASK. FOGGING NOTED IN MASK.
[2022-11-27 10:57] VITALS: BP 126/75
--- NOTE | 2022-11-27 11:04 | NUR ---
1045: PT RETURNS TO UNIT FROM PACU VIA STRETCHER. DROWSY BUT ABLE TO MAINTAIN APPROPRIATE CONVERSTATION. VSS, RESP EVEN AND UNLABORED. REPORTS 10/12 TO ABD. DISCUSSED PAIN MANAGEMENT PLAN AND PT AGREEABLE AT THIS TIME. UMBILICAL SITE WITH SMALL AMOUNT OF RED DRAINAGE. REMAINING TWO LAP SITES C/D/I. DENIES NAUSEA, JELLO AND ICE WATER PROVIDED. BALDERRAMA CATH REMOVED AND DRAINED FOR 200MLS OF FLUOROSCENE YELLOW URINE. POC DISCUSSED AND PT AGREEABLE. NO NEEDS VOICED, CALL LIGHT WITHIN REACH
--- NOTE | 2022-11-27 11:18 | NUR ---
1112: PT CLIFFORD PO INTAKE. PAIN RX ADMINSTERED ORDERED. NO FURTHER NEEDS AT THIS TIME, CALL LIGHT WITHIN REACH
[2022-11-27 11:40] VITALS: BP 145/99
--- NOTE | 2022-11-27 12:13 | NUR ---
PT IN BED. AND DAUGHTER AT BEDSIDE. DENIED NEEDS. CONSENTED TO PRAYER. PRAYED FOR HEALING.
--- NOTE | 2022-11-27 12:46 | NUR ---
1145: PT AWAKE AND ALERT WATCHING TV IN STRETCHER. VSS, RESP EVEN AND UNLABORED. REPORTS CLIFFORD PAIN LEVEL AFTER PAIN RX ADMINISTRATION AND DENIES NAUSEA. IV CONVERTED TO SL AND SCDS REMOVED. PT DANGLED AT THE BEDSIDE, CLIFFORD WELL. DENIES DIZZINESS AND SOB. AMBULATES TO BR WITH STANDBY FROM THIS RN. SUCCESSFUL FIRST POST OP VOID, 200MLS. SMALL AMOUNT OF RED DRAINAGE OUT OF THE BOTTOM OR UMBILICAL BANDAID, REINFORCED. PT DRESSES WITH ASSISTANCE FROM THIS RN. SL REMOVED WITH CATH TIP INTACT AND PRESSURE APPLIED TO SITE, WNL 1225: DC INSTRUCTIONS PROVIDED AND DISCUSSED ORDERED. PT VOICES UNDERSTANDING AND DENIES QUESTIONS AND CONCERNS AT THIS TIME. WHEELED OFF OF UNIT BY THIS RN. TRANSFERS INTO VEHICLE INDEPENDENTLY AND APPROPRIATELY. NO PHYSICAL S/S OF DISTRESS
--- NOTE | 2022-11-27 14:27 | EKG ---
[facility] [address] [place] [address] Signed Normal sinus rhythm Normal ECG When compared with ECG of 10-NOV-2019 18:19, Non-specific change in ST segment in Lateral leads Nonspecific T wave abnormality no longer evident in Lateral leads Confirmed by EZEQUIEL RUIZ MD ([id number]) on 11/27/2022 2:27:07 PM Electronically Signed By: EZEQUIEL RUIZ 11/27/22 1427 PATIENT NAME: BLAKE RHOADES Electrocardiogram DATE OF : 79 PHYSICIAN: EZEQUIEL RUIZ REPORT #: [id number] REPORT IS CONFIDENTIAL AND NOT TO BE RELEASED WITHOUT AUTHORIZATION
--- NOTE | 2022-11-29 17:43 | PATH ---
[facility] [address] [place], [place] [address] Signed SPECIMEN(S): A UTERUS, CERVIX, TUBES AND OVARIES SPECIMEN SOURCE: A. UTERUS, CERVIX, TUBES AND OVARIES CLINICAL HISTORY: Infiltrating ductal carcinoma of right breast. FINAL PATHOLOGIC DIAGNOSIS: Uterus, cervix, and bilateral ovaries and fallopian tubes, total hysterectomy: - Cervix: No pathologic diagnosis. - Uterus: - Proliferative endometrium. - Adenomyosis. - Negative for atypia or hyperplasia. - Leiomyomas. - Negative for atypia, hyperplasia or malignancy. - Ovaries: - Benign follicular cysts. - Negative for atypia or malignancy. - Fallopian tubes and fimbriae: No pathologic diagnosis. NA:[facility]:C2NR MICROSCOPIC EXAMINATION: Histologic sections of all submitted blocks are examined by light microscopy. These findings, together with the gross examination, support the pathologic diagnosis. GROSS DESCRIPTION: The specimen, labeled and designated "Lemitar, uterus, cervix, bilateral fallopian tubes and ovaries," is received in formalin and consists of uterus and cervix with attached right ovary and fallopian tube. The left ovary and fallopian tube are within the container. The uterus measures 5.5 cm cornu to cornu, 4.5 cm anterior to posterior and 10.2 cm superior to inferior. The serosal surface is pink-justice, smooth. The trimmed uterus weighs 129 g. The ectocervix is pink-justice, focally congested and measures 2.7 x 2.5 cm. Sectioning through the cervix reveals a pink-justice, homogenous tissue. The endometrial cavity measures 3.7 x 3.2 cm. It is lined with pink-red, smooth endometrium. Sectioning through the myometrium reveals several cyst-like defects that measure 0.1 to 0.2 cm PATIENT NAME: BLAKE RHOADES PATHOLOGY DATE OF : 79 REPORT #: [id number] PHYSICIAN: JAGRUTI PATHOLOGY PCP: LEONIDES FUENTES PAC REPORT IS CONFIDENTIAL AND NOT TO BE RELEASED WITHOUT AUTHORIZATION [facility] [address] [place], [place] [address] Signed in diameter. The defect is empty. The myometrium shows two white, firm, well-defined nodules that measure 0.4 and 1.1 cm in diameter. Also present is one subserosal yellow, firm, calcified nodule that measures 0.8 cm in diameter. The myometrium measures 2.2 cm in thickness. The endometrium measures 0.2 cm in thickness. Specimen is left for decalcification in Immunocal prior to processing. Each fallopian tube shows violaceous and smooth serosa. Fimbriae are not grossly identified. The right fallopian tube measures 7 cm in length and varies in diameter from 0.5 to 1.1 cm. Sectioning through the tube reveals a cyst that measures 1.5 cm in diameter. The cyst is filled with a clear fluid. The right ovary measures 4.5 x 1.5 x 1.5 cm. The serosal surface is yellow-justice, smooth. Sectioning through the ovary reveals a cyst that measures 1.2 cm in diameter. The cyst has a ruptured wall and is empty. The left fallopian tube measures 6 cm in length and 0.6 cm in diameter. The left ovary measures 5.0 x 2.0 x 1.3 cm. The serosal surface is pink-justice to violaceous and smooth with areas of folds. Sectioning through the ovary reveals several hemorrhagic cysts that range in size from 0.3 to 0.8 cm in greatest dimension. Cassette Summary: (A1) Cervix, resources representative sections, posterior inked (A2) Endomyometrium with intramural cysts, resources representative sections (A3) Three nodules, resources representative sections (A4) Right fallopian tube, resources representative sections (A5) Right ovary, resources representative sections (A6) Left fallopian tube, resources representative sections (A7) Left ovary, resources representative sections JS (under the direct supervision of a pathologist) The Gross Description was prepared using a voice recognition system. The report was reviewed for accuracy; however, sound-alike word errors, addition and/or deletions may occur. If there is any question about this report, please contact Client Services. PERFORMING LABORATORY: Technical component was performed by [facility], [address] [place] [address] (CLIA# [id number]). Professional interpretation was performed by [facility], [address] [place] [address] (CLIA# [id number]). Diagnostician: Ilene Lam MD PATIENT NAME: BLAKE RHOADES PATHOLOGY DATE OF : 79 REPORT #: [id number] PHYSICIAN: JAGRUTI CERVANTES PCP: LEONIDES FUENTES PAC REPORT IS CONFIDENTIAL AND NOT TO BE RELEASED WITHOUT AUTHORIZATION [facility] [address] [facility] [place] [address] Signed Pathologist Electronically Signed 11/29/2022 Copies: ~ PATIENT NAME: BLAKE RHOADES PATHOLOGY DATE OF : 79 REPORT #: [id number] PHYSICIAN: JAGRUTI CERVANTES PCP: LEONIDES FUENTES PAC REPORT IS CONFIDENTIAL AND NOT TO BE RELEASED WITHOUT AUTHORIZATION
== END 2022-11-27 12:25 | disposition home or self-care (01) ==
LOC: OPS 06:00 → DS 06:00 → OPS 07:30 → DS 07:30 → OPS 12:25
PROVIDERS: ATTEND Obstetrics & Gynecology
PROC: 0UT2FZZ Resection of Bilateral Ovaries, Via Natural or Artificial Opening With Percutaneous Endoscopic Assistance (ICD-10-PCS; 2022-11-27)
PROC: 0UT9FZZ Resection of Uterus, Via Natural or Artificial Opening With Percutaneous Endoscopic Assistance (ICD-10-PCS; principal; 2022-11-27 07:30)
PROC: 0UT7FZZ Resection of Bilateral Fallopian Tubes, Via Natural or Artificial Opening With Percutaneous Endoscopic Assistance (ICD-10-PCS; 2022-11-27 07:30)
DX: C50.911 Malignant neoplasm of unspecified site of right female breast (principal); Z17.0 Estrogen receptor positive status [ER+]; N80.03 Adenomyosis of the uterus; D25.9 Leiomyoma of uterus, unspecified
CPT/HCPCS: 00840; 88307; 88311; 93005; 93010; J0330; J0690; J1100; J1644; J1885; J2250; J2405; J2704; J2765; J3010; J7121

== ENCOUNTER 2024-10-18 07:48 | Day surgery (SDC) | payer BC ==
[~2024-10-18] VITALS: Ht 152.4 cm; Wt 72.7 kg
[~2024-10-18 07:48] MED LIST changes: +CEFAZOLIN SODIUM 2 GM/20 ML SYR IV SCH; +HYDROCODON-ACE1 EA10 PO; +HYDROXYZINE HCL50 MG PO; +IBLOOD GLUCOSE TEST STRIP 1 EA TEST VI PRN; +LACTATED RINGER'S 1,000 ML IV SCH; +LIDOCAINE HCL 1% 5 ML SDV INJ ONE; +ONDANSETRON ODT4 MG PO
[2024-10-18 08:04] VITALS: BP 134/91
[2024-10-18] MEDS ORDERED: DEXAMETHASONE SOD PHOS 4 MG/ML VIAL ONE ×2 (08:24→09:37)
[2024-10-18] MEDS ORDERED: Ropivacaine HCl 0.5% 30 ML VIAL ONE (08:24)
[2024-10-18] MEDS ORDERED: LIDOCAINE HCL 2% 5 ML SDV ONE ×2 (08:24→09:37)
[2024-10-18] MEDS ORDERED: MIDAZOLAM HCL 2 MG/2 ML VIAL ONE (08:24)
[2024-10-18] MEDS ORDERED: HYDROCODONE/ACETA 7.5/325 TAB PO PRN (09:15)
[2024-10-18] MEDS ORDERED: propofoL 200 MG/20 ML VIAL ONE (09:37)
[2024-10-18] MEDS ORDERED: ondansetron HCL 4 MG/2 ML VIAL ONE (09:37)
[2024-10-18] MEDS ORDERED: HYDROCODON-ACE1 EA11 PO (10:36)
--- NOTE | 2024-10-18 10:57 | NUR ---
10/18/24 1057 Ela Roque PATIENT REPORTS FEELING "A LITTLE BIT OF ACID REFLUX." ALCOHOL WIPE GIVEN.
[2024-10-18] MEDS ORDERED: ondansetron HCL 4 MG/2 ML VIAL IV PRN (11:00)
[2024-10-18] MEDS ORDERED: fentaNYL citrate 50 MCG/ML SDV IV PRN (11:00)
[2024-10-18] MEDS ORDERED: MEPERIDINE HCL 25 MG/1 ML VIAL IV PRN (11:00)
[2024-10-18] MEDS ORDERED: NALOXONE HCL 0.4 MG SYR IV PRN (11:00)
[2024-10-18] MEDS ORDERED: HYDROmorphone HCL 1 MG/ML SYR IV PRN (11:00)
[2024-10-18 11:06] VITALS: BP 129/77
--- NOTE | 2024-10-18 11:06 | NUR ---
PT ARRIVED BACK TO DS ON RA, AAOX3, ANSWERING QUESTIONS APPROPRIATELY, AND ABLE TO MAKE HER NEEDS KNOWN. PTS IN ROOM UPON PTS RETURN. REPORT RECEIVED FROM COLLECTIONS ANALYST. SURGICAL SITE VISUALIZED WITH COLLECTIONS ANALYST. DRSG APPEARS CDI WITH SLLING IN PLACE TO LUE. ICE ALSO IN PLACE TO SURGICAL SITE AND LUE IS ELEVATED AT HEART LEVEL. PT DENIES PAIN WHEN ASKED AND REPORTS NUMBNESS IN EXTREMITY FROM NERVE BLOCK. PT DENIES NAUSEA WHEN ASKED. PT PROVIDED WITH ICE WATER, PUDDING AND CRACKERS. PT EATING WITH HUSBANDS ASSISTANCE. ALL QUESTIONS ANSWERED. VS TAKEN. IV SITE ASSESSED. BED IN LOW POSITION, WHEELS LOCKED, BILAT RAILS IN PLACE FOR SAFETY. CALL LIGHT WITHIN PT REACH.
[2024-10-18 11:50] VITALS: BP 136/87
--- NOTE | 2024-10-18 11:50 | NUR ---
1130-INTO PTS ROOM FOR DC EDUCATION. AT PTS BEDSIDE. PT AND SPOUSE PROVIDED WITH VERBAL AND WRITTEN DC INSTRUCTIONS WELL F/U APPT AND DR. ROPER AFTER HOURS PHONE NUMBER. PT VERBALIZED UNDERSTANDING. ALL QUESTIONS ANSWERED. 1135-PT FEELS URGE TO VOID. IV SL'D. PT ASSISTED TO EOB AND THEN AMBULATED ACROSS ADAMS TO RESTROOM WITH RN SBA FOR SAFETY. PT ABLE TO VOID APPROX 300 ML OF CLR, YELLOW URINE. 1140-PT DRESSING FOR DISCHARGE WITH HUSBANDS ASSISTANCE. CALL LIGHT AND PERSONAL BELONGINGS WITHIN PT REACH. 1150-INTO PTS ROOM FOR ROUTINE REASSESSMENT. VS TAKEN. IV REMOVED. TIP APPEARS TO BE INTACT. PRESSURE DRSG APPLIED. PT DENIES NAUSEA OR PAIN WHEN ASKED. CMS INTACT. PT COMPLIANT WITH USE OF SLING AND ICE PACK IN PLACE TO L HAND/SURGICAL AREA. PT REPORTS NUMBNESS REMAINS. PT HAS BEEN TOLERATING PO FOOD AND FLUIDS WELL WITHOUT ISSUES. ALL QUESTIONS ANSWERED. CALL LIGHT WITHIN REACH. BED IN LOW POSITION, WHEELS LOCKED. SPOUSE REMAINS AT BEDSIDE.
--- NOTE | 2024-10-18 12:06 | NUR ---
PT DISCHARGED FROM DS VIA WC TO PASSENGER SIDE OF HUSBANDS VEHICLE. ALL PERSONAL BELONGINGS TAKEN WITH PT.
[2024-10-18] MEDS ORDERED: SEVOFLURANE 250 ML BTL INH ONE (13:18)
--- NOTE | 2024-10-25 06:55 | OR ---
[facility] [address] [place], [place] [address] Signed DATE OF OPERATION: 10/18/2024 SURGEON: Mary Park MD PREOPERATIVE DIAGNOSIS: Right fifth metacarpal fracture, displaced. POSTOPERATIVE DIAGNOSIS: Right fifth metacarpal fracture, displaced. PROCEDURE PERFORMED: Open reduction and internal fixation, right fifth metacarpal. DIRECTOR OF CONTENT MARKETING: Tamera Rosenberg PA-C. Tamera was present and critical for all portions of procedure. ANESTHESIA: General. BLOOD LOSS: None. TOURNIQUET TIME: 49 minutes. IMPLANTS: A seven hole 1.5 mm plate with seven screws. BRIEF HISTORY: Blake is a 49-year-old female who suffered a displaced metacarpal fracture of the right hand. Risks, benefits, and alternatives of surgery were discussed with her and she elected to proceed. DESCRIPTION OF PROCEDURE: Once consent was obtained she was taken to the operating room. After adequate anesthesia she was placed on the operating room table, hand table was placed as well. The arm was then prepped and draped in a standard sterile fashion up to a well-padded proximal arm tourniquet. The arm was exsanguinated using Esmarch bandage. Tourniquet inflated to 200 mmHg. Standard dorsal lateral approach to the fifth metacarpal was Electronically Signed By: MARY PARK MD 10/25/24 0655 PATIENT NAME: BLAKE RHOADES OPERATIVE REPORT DATE OF : 79 REPORT #: [id number] PHYSICIAN: MARY PARK MD PCP: LEONIDES FUENTES PAC REPORT IS CONFIDENTIAL AND NOT TO BE RELEASED WITHOUT AUTHORIZATION [facility] [address] [facility] [place] [place] [address] Signed taken through skin and subcutaneous tissue and directly down to the bone. The extensor tendons were carefully retracted and protected. The fracture was cleared of debris and was reduced and aligned. Eventually, we placed the plate against the proximal end of the metacarpal with one screw and aligned the rest of the bone to that. Once we got her properly aligned the remainder of the screw holes were drilled and appropriate length screws were placed. The screws actually are a little bit long in order to get good bone purchase. The final radiograph showed good reduction, alignment and plate placement. The wound was copiously irrigated with normal saline and closed with 3-0 Monocryl and 3-0 Stratafix and sealed with LiquiBand and Steri-Strips. She was placed in an ulnar gutter splint over a sterile gauze dressing. She tolerated the procedure well. All sponge, needle, and instrument counts were correct. Mary Park MD BA/KARIN /[id number] Copies: ~ Electronically Signed By: MARY PARK MD 10/25/24 0655 PATIENT NAME: BALKE RHOADES OPERATIVE REPORT DATE OF : 79 REPORT #: [id number] PHYSICIAN: MARY PARK MD PCP: LEONIDES FUENTES PAC REPORT IS CONFIDENTIAL AND NOT TO BE RELEASED WITHOUT AUTHORIZATION
== END 2024-10-18 12:06 | disposition home or self-care (01) ==
LOC: DS 07:48
PROVIDERS: ATTEND Specialist
PROC: 0PSP04Z Reposition Right Metacarpal with Internal Fixation Device, Open Approach (ICD-10-PCS; principal; 2024-10-18 10:00)
DX: S62.326A Displaced fracture of shaft of fifth metacarpal bone, right hand, initial encounter for closed fracture (principal); I10 Essential (primary) hypertension; W18.09XA Striking against other object with subsequent fall, initial encounter
CPT/HCPCS: 01830; 64417; 73130; C1713; J0690; J1100; J2003; J2250; J2405; J2704; J2795; J7121